=== PATIENT | male | born 1940 | race Caucasian/White ===

== ENCOUNTER 2017-09-21 08:50 | Outpatient (CLI) | payer MEDICARE, OTHER ==
--- NOTE | 2017-09-21 10:11 | CT ---
CT OF ABDOMEN AND PELVIS PERFORMED WITHOUT CONTRAST ENHANCEMENT: History: Lower back and lower abdomen pain. History of appendectomy. Patient has history of allergy t o contrast. Comparison: 09-28-15 FINDINGS: Lung bases show some minimal linear scar. The liver, spleen, pancreas and gallbladder regions appear unremarkable given the limitations of a no ncontrast exam. Right and left adrenal glands and right and left kidneys are normal in size and appearance. No obstru ction. No renal calculi. No significant periaortic or mesenteric adenopathy. Colonic diverticulosis is noted. Changes are more severe in the descending sigmoid colon region. CT OF PELVIS PERFORMED WITHOUT CONTRAST ENHANCEMENT: The prostate appears slightly enlarged. No adenopathy, mass, or free fluid. Incidental note is made of some diverticular changes of the terminal ileum. There are arthritic changes of the spine. Partially visualized intramedullary shazia in the right femur is seen. IMPRESSION: 1. No evidence of renal or ureteral calculi. 2. Colonic diverticulosis. Also some diverticular change of the terminal ileum. 3. Mildly enlarged prostate. POS: [facility]
== END 2017-09-21 08:51 | disposition home or self-care (01) ==
LOC: CT 08:50
PROVIDERS: ATTEND Urology
DX: R10.9 Unspecified abdominal pain (principal); K57.30 Diverticulosis of large intestine without perforation or abscess without bleeding; N40.0 Benign prostatic hyperplasia without lower urinary tract symptoms
CPT/HCPCS: 74176

== ENCOUNTER 2021-06-21 12:56 | Inpatient (IN) | payer MEDICARE, OTHER ==
[2021-06-21 14:00] LABS: #Eosinphils 0.1 thou/uL (0.0-0.7); #Lymphocytes 0.7 thou/uL (1.20-3.40); #Monocytes 0.5 thou/uL (0.11-0.59); #Neutrophils 8.1 thou/uL (1.40-6.50); %Basophils 0.4 % (0.0-1.0); %Eosinophils 0.6 % (0.0-10.0); %Lymphocytes 7.2 % (21.0-51.0); %Monocytes 5.3 % (0.0-10.0); %Neutrophils 86.5 % (42.0-75.0); Hemoglobin 6.8 g/dL (14.0-18.0); Mean Corpuscular HGB CONC 31.7 g/dL (32.0-36.0); Mean Corpuscular Hemoglobin 28.6 pg (27.0-31.0); Mean Corpuscular Volume 90.1 fL (78.0-98.0); Mean Platelet Volume 7.3 fL (7.4-10.4); Platelet Count 381 thou/uL (130-400); RBC Distribution Width 18.3 % (11.5-14.5); Red Blood Cell (RBC) Count 2.38 mill/uL (4.70-6.10); White Blood Cell (WBC) Count 9.4 thou/uL (4.8-10.8)
[2021-06-21 14:06] LABS: Bacteria/HPF None Seen HPF (None Seen); Bilirubin Negative (Negative); Blood, Urine Negative (Negative); Clarity Clear (Clear); Glucose, Urine (Dipstick) Normal (Negative); Ketone, Urine Negative (Negative); Leukocyte 500 Leu/uL (Negative); Nitrite Negative (Negative); Protein, Urine (Dipstick) Negative (Neg-Trace); RBC/HPF 0-3 HPF (0-3); Specific Gravity, Urine 1.023 (1.002-1.036); Squamous Epithelial None Seen HPF (0-3); Urobilinogen Normal mg/dL (Less than 2); WBC/HPF 21-50 HPF (0-3)
[2021-06-21 14:19] LABS: ALT (SGPT) 9 U/L (8-55); AST (SGOT) 13 U/L (5-34); Albumin 3.3 g/dL (3.4-4.8); Alkaline Phosphatase 72 U/L (40-110); Anion Gap 12 mmol/L (10-20); BUN (Urea Nitrogen) 50 mg/dL (8.4-25.7); Bilirubin, Total 0.5 mg/dL (0.2-1.2); CK (CPK) 27 U/L (30-200); Calc. Creatinine Clearance 0 mL/min (70-130); Calcium 8.8 mg/dL (7.8-10.44); Carbon Dioxide 23 mmol/L (23-31); Chloride 107 mmol/L (98-107); Globulin 1.9 g/dL (2.4-3.5); Glucose 144 mg/dL (83-110); Magnesium 1.9 mg/dL (1.6-2.6); Potassium 3.9 mmol/L (3.5-5.1); Protein, Total 5.2 g/dL (5.8-8.1); Sodium 138 mmol/L (136-145)
[2021-06-21] MEDS ORDERED: HYDROcodone/Acetaminophen 5/325 mg Tablet PO PRN (16:52)
[2021-06-21] MEDS ORDERED: Senokot S 8.6-50 MG TAB PO PRN (16:52)
[2021-06-21] MEDS ORDERED: Calcium Carbonate 500 MG ChewTAB PO PRN (16:52)
[2021-06-21] MEDS ORDERED: HYDROcodone/Acetaminophen 7.5/325 mg Tablet PO PRN (16:52)
[2021-06-21] MEDS ORDERED: Ondansetron PF 4 MG/2 ML Vial IVP PRN (17:02)
[2021-06-21] MEDS ORDERED: cefTRIAXone\\ROCEPHIN 1 GM in Sodium Chloride 0.9% 100 ML IVPB SCH (18:00)
[2021-06-21 18:54] LABS: Hemoglobin 7.4 g/dL (14.0-18.0); Platelet Count 306 thou/uL (130-400)
[2021-06-21 19:10] LABS: Iron 34 ug/dL (65-175); Iron Binding Capacity, Total 298 mcg/dL (261-462)
[2021-06-21 19:36] LABS: Ferritin 34.15 ng/mL (22-322)
[2021-06-21 20:42] VITALS: BMI 29.7
[2021-06-21] MEDS: Pantoprazole 40 MG VIAL IVP SCH (21:01)
[2021-06-21] MEDS ORDERED: hydrALAZINE 20 MG/ML VIAL SLOW IVP PRN (22:04)
[2021-06-21] MEDS ORDERED: RUXOLITINIB PHOSPHATE 10 MG PO SCH (23:00)
[2021-06-22 04:57] LABS: Hemoglobin 6.9 g/dL (14.0-18.0); Platelet Count 251 thou/uL (130-400)
[2021-06-22 05:27] LABS: ALT (SGPT) 7 U/L (8-55); AST (SGOT) 11 U/L (5-34); Albumin 2.7 g/dL (3.4-4.8); Alkaline Phosphatase 57 U/L (40-110); Anion Gap 8 mmol/L (10-20); BUN (Urea Nitrogen) 42 mg/dL (8.4-25.7); Calc. Creatinine Clearance 63 mL/min (70-130); Calcium 8.3 mg/dL (7.8-10.44); Carbon Dioxide 24 mmol/L (23-31); Chloride 113 mmol/L (98-107); Globulin 1.7 g/dL (2.4-3.5); Glucose 104 mg/dL (83-110); Potassium 4.3 mmol/L (3.5-5.1); Protein, Total 4.4 g/dL (5.8-8.1); Sodium 141 mmol/L (136-145)
[2021-06-22] MEDS: Gabapentin 300 MG CAP PO SCH ×3 (08:44→20:51)
[2021-06-22] MEDS: Pantoprazole 40 MG VIAL IVP SCH ×2 (08:44→20:51)
[2021-06-22] MEDS: RUXOLITINIB PHOSPHATE 10 MG PO SCH ×2 (08:45→20:53)
[2021-06-22 08:53] LABS: Iron 57 ug/dL (65-175); Iron Binding Capacity, Total 240 mcg/dL (261-462)
[2021-06-22 12:35] LABS: SARS-CoV-2 PCR by NAA Not Detected (NotDetected)
[2021-06-22] MEDS ORDERED: Morphine 2 MG/ML VIAL SLOW IVP SCH (22:45)
[2021-06-22] MEDS ORDERED: Amlodipine 10 MG TAB PO SCH (22:45)
[2021-06-23 04:55] LABS: #Eosinphils 0.1 thou/uL (0.0-0.7); #Lymphocytes 0.7 thou/uL (1.20-3.40); #Monocytes 0.5 thou/uL (0.11-0.59); #Neutrophils 3.7 thou/uL (1.40-6.50); %Basophils 0.5 % (0.0-1.0); %Eosinophils 1.9 % (0.0-10.0); %Lymphocytes 13.7 % (21.0-51.0); %Monocytes 9.3 % (0.0-10.0); %Neutrophils 74.7 % (42.0-75.0); Hemoglobin 7.4 g/dL (14.0-18.0); Mean Corpuscular HGB CONC 32.7 g/dL (32.0-36.0); Mean Corpuscular Hemoglobin 29.4 pg (27.0-31.0); Platelet Count 237 thou/uL (130-400); RBC Distribution Width 16.8 % (11.5-14.5); White Blood Cell (WBC) Count 4.9 thou/uL (4.8-10.8)
[2021-06-23 05:19] LABS: Anion Gap 8 mmol/L (10-20); BUN (Urea Nitrogen) 29 mg/dL (8.4-25.7); Calc. Creatinine Clearance 73 mL/min (70-130); Calcium 8.5 mg/dL (7.8-10.44); Carbon Dioxide 23 mmol/L (23-31); Chloride 111 mmol/L (98-107); Glucose 99 mg/dL (83-110); Potassium 3.9 mmol/L (3.5-5.1); Sodium 138 mmol/L (136-145)
[2021-06-23] MEDS ORDERED: Polyethylene Glycol 3350 17 GM Packet PO PRN (06:38)
[2021-06-23] MEDS: Hydrochlorothiazide 25 MG TAB PO SCH (08:54)
[2021-06-23] MEDS: Pantoprazole 40 MG VIAL IVP SCH ×2 (08:54→20:10)
[2021-06-23] MEDS: Losartan 25 MG TAB PO SCH (08:55)
[2021-06-23] MEDS: RUXOLITINIB PHOSPHATE 10 MG PO SCH ×2 (08:55→20:11)
[2021-06-23] MEDS ORDERED: Amlodipine 5 MG TAB PO SCH (09:00)
[2021-06-23] MEDS ORDERED: Cyanocobalamin 1000 MCG/ML VIAL IM SCH (09:00)
[2021-06-23] MEDS: Acetaminophen 500 MG TAB PO PRN ×2 (09:05→18:45)
[2021-06-23] MEDS ORDERED: GoLYTELY 4,000 ml Bottle PO SCH (16:00)
[2021-06-23] MEDS ORDERED: Labetalol HCl 100 MG/20 ML VIAL SLOW IVP PRN (17:53)
[2021-06-23] MEDS: Doxazosin Mesylate 4 MG TAB PO SCH (20:11)
[2021-06-23] MEDS ORDERED: Pregabalin 50 MG CAP PO SCH (23:00)
[2021-06-24 04:57] LABS: #Eosinphils 0.1 thou/uL (0.0-0.7); #Lymphocytes 0.5 thou/uL (1.20-3.40); #Monocytes 0.3 thou/uL (0.11-0.59); #Neutrophils 3.4 thou/uL (1.40-6.50); %Basophils 0.7 % (0.0-1.0); %Eosinophils 2.3 % (0.0-10.0); %Monocytes 6.8 % (0.0-10.0); %Neutrophils 78.1 % (42.0-75.0); Hemoglobin 6.9 g/dL (14.0-18.0); Mean Corpuscular HGB CONC 32.4 g/dL (32.0-36.0); Mean Corpuscular Hemoglobin 29.6 pg (27.0-31.0); Mean Corpuscular Volume 91.2 fL (78.0-98.0); Mean Platelet Volume 6.9 fL (7.4-10.4); Platelet Count 230 thou/uL (130-400); RBC Distribution Width 16.6 % (11.5-14.5); Red Blood Cell (RBC) Count 2.34 mill/uL (4.70-6.10); White Blood Cell (WBC) Count 4.3 thou/uL (4.8-10.8)
[2021-06-24 05:18] LABS: Anion Gap 8 mmol/L (10-20); BUN (Urea Nitrogen) 19 mg/dL (8.4-25.7); Calc. Creatinine Clearance 72 mL/min (70-130); Calcium 8.5 mg/dL (7.8-10.44); Carbon Dioxide 28 mmol/L (23-31); Chloride 107 mmol/L (98-107); Glucose 104 mg/dL (83-110); Potassium 3.5 mmol/L (3.5-5.1); Sodium 139 mmol/L (136-145)
[2021-06-24] MEDS ORDERED: Ketamine 50 MG/ML (10ML VIAL) ONE (07:15)
[2021-06-24] MEDS ORDERED: PHENYLEPHRINE-NS 100 MCG/ML 10 ML SYRINGE ONE ×2 (08:01→09:04)
[2021-06-24] MEDS ORDERED: PROPOFOL 200 MG/20 ML VIAL ONE (08:01)
[2021-06-24] MEDS ORDERED: ePHEDrine 50 MG/ML VIAL ONE (08:01)
[2021-06-24] MEDS ORDERED: Pregabalin 50 MG CAP PO SCH (09:00)
[2021-06-24] MEDS ORDERED: ePHEDrine Sulfate 50 MG/10 ML VIAL ONE (09:04)
[2021-06-24] MEDS ORDERED: Phenylephrine 10 MG/ML VIAL ONE (09:04)
[2021-06-24] MEDS: Losartan 25 MG TAB PO SCH (10:16)
[2021-06-24] MEDS: Hydrochlorothiazide 25 MG TAB PO SCH (10:16)
[2021-06-24] MEDS: Pantoprazole 40 MG VIAL IVP SCH ×2 (10:16→20:32)
[2021-06-24] MEDS: RUXOLITINIB PHOSPHATE 10 MG PO SCH ×2 (10:17→20:34)
[2021-06-24 17:33] LABS: Hemoglobin 8.1 g/dL (14.0-18.0)
[2021-06-24 17:34] LABS: Platelet Count 244 thou/uL (130-400)
[2021-06-24] MEDS: Acetaminophen 500 MG TAB PO PRN (20:30)
[2021-06-24] MEDS: Doxazosin Mesylate 4 MG TAB PO SCH (20:31)
[2021-06-24] MEDS ORDERED: Amitriptyline HCl 10 MG TAB PO SCH (21:00)
[2021-06-25 04:09] LABS: #Eosinphils 0.1 thou/uL (0.0-0.7); #Lymphocytes 0.7 thou/uL (1.20-3.40); #Monocytes 0.3 thou/uL (0.11-0.59); #Neutrophils 3.9 thou/uL (1.40-6.50); %Basophils 0.2 % (0.0-1.0); %Eosinophils 1.3 % (0.0-10.0); %Monocytes 6.5 % (0.0-10.0); Hemoglobin 8.1 g/dL (14.0-18.0); Mean Corpuscular HGB CONC 31.9 g/dL (32.0-36.0); Mean Corpuscular Hemoglobin 29.5 pg (27.0-31.0); Mean Corpuscular Volume 92.4 fL (78.0-98.0); Mean Platelet Volume 7.1 fL (7.4-10.4); Platelet Count 249 thou/uL (130-400); RBC Distribution Width 16.3 % (11.5-14.5); Red Blood Cell (RBC) Count 2.74 mill/uL (4.70-6.10)
[2021-06-25 04:29] LABS: Anion Gap 13 mmol/L (10-20); BUN (Urea Nitrogen) 19 mg/dL (8.4-25.7); Calc. Creatinine Clearance 61 mL/min (70-130); Calcium 8.6 mg/dL (7.8-10.44); Carbon Dioxide 23 mmol/L (23-31); Chloride 106 mmol/L (98-107); Glucose 111 mg/dL (83-110); Potassium 3.6 mmol/L (3.5-5.1); Sodium 138 mmol/L (136-145)
[2021-06-25] MEDS ORDERED: Cyanocobalamin (Vitamin B-12) 1,000 MCG TAB PO SCH (09:00)
[2021-06-25] MEDS: RUXOLITINIB PHOSPHATE 10 MG PO SCH (09:29)
[2021-06-25] MEDS: Losartan 25 MG TAB PO SCH (09:30)
[2021-06-25] MEDS: Pantoprazole 40 MG VIAL IVP SCH (09:30)
[2021-06-25] MEDS: Hydrochlorothiazide 25 MG TAB PO SCH (09:30)
[2021-06-25 12:01] VITALS: BP 168/68; TEMP 97.6
== END 2021-06-25 13:39 | disposition home or self-care (01) | DRG 811 ==
LOC: ERS 12:56 → ERHOLD 15:33 → 2NO 18:05
PROVIDERS: ADMIT Family Medicine; ATTEND Internal Medicine
PROC: 30233N1 Transfusion of Nonautologous Red Blood Cells into Peripheral Vein, Percutaneous Approach (ICD-10-PCS; principal; 2021-06-21)
PROC: 0W3P8ZZ Control Bleeding in Gastrointestinal Tract, Via Natural or Artificial Opening Endoscopic (ICD-10-PCS; 2021-06-24)
PROC: 0DJD8ZZ Inspection of Lower Intestinal Tract, Via Natural or Artificial Opening Endoscopic (ICD-10-PCS; 2021-06-24)
DX: D50.9 Iron deficiency anemia, unspecified (principal); K31.82 Dieulafoy lesion (hemorrhagic) of stomach and duodenum; N17.9 Acute kidney failure, unspecified; D46.9 Myelodysplastic syndrome, unspecified; Z20.822 Contact with and (suspected) exposure to COVID-19; I10 Essential (primary) hypertension; C44.90 Unspecified malignant neoplasm of skin, unspecified; I48.0 Paroxysmal atrial fibrillation; I25.10 Atherosclerotic heart disease of native coronary artery without angina pectoris; R82.81 Pyuria; K57.30 Diverticulosis of large intestine without perforation or abscess without bleeding; K64.8 Other hemorrhoids; Z90.49 Acquired absence of other specified parts of digestive tract; Z91.041 Radiographic dye allergy status; Z79.01 Long term (current) use of anticoagulants; Z95.1 Presence of aortocoronary bypass graft; Z79.899 Other long term (current) drug therapy
CPT/HCPCS: 36415; 36430; 71045; 80048; 80053; 81003; 81015; 82274; 82550; 82607; 82728; 82746; 83540; 83550; 83605; 83615; 83735; 84443; 84484; 85014; 85018; 85025; 85049; 86850; 86900; 86901; 87086; 99285; C1776; C9113; J0360; J0696; J2270; J2370; J2704; J3420; J3490; P9016; U0003; U0005

== ENCOUNTER 2021-08-06 08:57 | Day surgery (SDC) | payer MEDICARE, OTHER ==
[2021-08-06] MEDS ORDERED: diphenhydrAMINE 25 MG CAP ONE (10:15)
[2021-08-06] MEDS ORDERED: Acetaminophen 325 MG TAB ONE ×2 (10:15)
[2021-08-06 15:44] VITALS: BP 151/67; TEMP 97.9
[2021-08-06 16:58] LABS: Hemoglobin 8.9 g/dL (14.0-18.0)
== END 2021-08-06 16:40 | disposition home or self-care (01) ==
LOC: ONC/OP 08:57
PROVIDERS: ATTEND Family Medicine
PROC: 30233N1 Transfusion of Nonautologous Red Blood Cells into Peripheral Vein, Percutaneous Approach (ICD-10-PCS; principal; 2021-08-06)
DX: D46.9 Myelodysplastic syndrome, unspecified (principal); Z91.041 Radiographic dye allergy status
CPT/HCPCS: 36430; 85014; 85018; 86850; 86900; 86901; P9016

== ENCOUNTER 2021-10-02 13:03 | Emergency (ER) | payer MEDICARE, OTHER ==
[2021-10-02 13:50] LABS: #Lymphocytes 0.5 thou/uL (1.20-3.40); #Monocytes 0.3 thou/uL (0.11-0.59); #Neutrophils 3.7 thou/uL (1.40-6.50); %Basophils 0.9 % (0.0-1.0); %Eosinophils 0.8 % (0.0-10.0); %Lymphocytes 10.3 % (21.0-51.0); %Monocytes 6.1 % (0.0-10.0); %Neutrophils 81.9 % (42.0-75.0); Hemoglobin 5.9 g/dL (14.0-18.0); Mean Corpuscular HGB CONC 29.1 g/dL (32.0-36.0); Mean Corpuscular Hemoglobin 24.6 pg (27.0-31.0); Mean Corpuscular Volume 84.6 fL (78.0-98.0); Mean Platelet Volume 7.3 fL (7.4-10.4); Platelet Count 252 thou/uL (130-400); RBC Distribution Width 16.9 % (11.5-14.5); Red Blood Cell (RBC) Count 2.38 mill/uL (4.70-6.10); White Blood Cell (WBC) Count 4.5 thou/uL (4.8-10.8)
[2021-10-02 13:58] LABS: INR-International Normal Ratio 1.1; Prothrombin Time 14.5 sec (12.0-14.7)
[2021-10-02 13:59] LABS: PTT 30.5 sec (22.9-36.1)
[2021-10-02 14:03] LABS: ALT (SGPT) 9 U/L (8-55); AST (SGOT) 17 U/L (5-34); Albumin 3.4 g/dL (3.4-4.8); Alkaline Phosphatase 57 U/L (40-110); Anion Gap 16 mmol/L (10-20); BUN (Urea Nitrogen) 34 mg/dL (8.4-25.7); Bilirubin, Total 0.4 mg/dL (0.2-1.2); Calc. Creatinine Clearance 0 mL/min (70-130); Calcium 8.7 mg/dL (7.8-10.44); Carbon Dioxide 19 mmol/L (23-31); Chloride 110 mmol/L (98-107); Estimated GFR 44; Globulin 1.9 g/dL (2.4-3.5); Glucose 115 mg/dL (83-110); Lipase 23 U/L (8-78); Potassium 4.6 mmol/L (3.5-5.1); Protein, Total 5.3 g/dL (5.8-8.1); Sodium 140 mmol/L (136-145)
[2021-10-02 16:59] LABS: Bacteria/HPF None Seen HPF (None Seen); Bilirubin Negative (Negative); Blood, Urine Negative (Negative); Clarity Clear (Clear); Glucose, Urine (Dipstick) Normal (Negative); Ketone, Urine Negative (Negative); Leukocyte 75 Leu/uL (Negative); Nitrite Negative (Negative); Protein, Urine (Dipstick) Negative (Neg-Trace); RBC/HPF 0-3 HPF (0-3); Specific Gravity, Urine 1.012 (1.002-1.036); Squamous Epithelial None Seen HPF (0-3); Urobilinogen Normal mg/dL (Less than 2)
== END 2021-10-02 19:20 | disposition home or self-care (01) ==
LOC: ERS 13:03
DX: K57.33 Diverticulitis of large intestine without perforation or abscess with bleeding (principal); I10 Essential (primary) hypertension
CPT/HCPCS: 36430; 74176; 80053; 83690; 85025; 85610; 85730; 86850; 86900; 86901; 86920; 96360; 99285; P9016; 36415; 81003; 81015

== ENCOUNTER 2021-10-20 08:53 | Day surgery (SDC) | payer MEDICARE, OTHER ==
[2021-10-20] MEDS ORDERED: Acetaminophen 325 MG TAB ONE ×2 (09:58)
[2021-10-20 16:40] VITALS: BP 183/80; TEMP 97.7
== END 2021-10-20 16:40 | disposition home or self-care (01) ==
LOC: ONC/OP 08:53
PROVIDERS: ATTEND Physician Assistant Medical
PROC: 30233N1 Transfusion of Nonautologous Red Blood Cells into Peripheral Vein, Percutaneous Approach (ICD-10-PCS; principal; 2021-10-20)
DX: D64.9 Anemia, unspecified (principal); Z91.041 Radiographic dye allergy status
CPT/HCPCS: 36430; 86850; 86900; 86901; P9016

== ENCOUNTER 2021-10-26 07:43 | Day surgery (SDC) | payer MEDICARE, OTHER ==
[2021-10-25 10:56] VITALS: BMI 29.4
[2021-10-26] MEDS ORDERED: Lidocaine 1% MPF 2 ML VIAL ONE (09:46)
[2021-10-26] MEDS ORDERED: PROPOFOL 200 MG/20 ML VIAL ONE (09:46)
== END 2021-10-26 11:00 | disposition home or self-care (01) ==
LOC: SDC 07:43
PROVIDERS: ATTEND Internal Medicine
PROC: 0DB68ZX Excision of Stomach, Via Natural or Artificial Opening Endoscopic, Diagnostic (ICD-10-PCS; principal; 2021-10-26)
DX: D62 Acute posthemorrhagic anemia (principal); K31.89 Other diseases of stomach and duodenum; K26.9 Duodenal ulcer, unspecified as acute or chronic, without hemorrhage or perforation; D75.81 Myelofibrosis; I10 Essential (primary) hypertension; I25.10 Atherosclerotic heart disease of native coronary artery without angina pectoris; N40.0 Benign prostatic hyperplasia without lower urinary tract symptoms; F17.290 Nicotine dependence, other tobacco product, uncomplicated; K86.89 Other specified diseases of pancreas; Z79.01 Long term (current) use of anticoagulants; Z79.899 Other long term (current) drug therapy; Z91.041 Radiographic dye allergy status; Z95.1 Presence of aortocoronary bypass graft
CPT/HCPCS: 88305; J2704

== ENCOUNTER 2021-12-21 06:36 | Day surgery (SDC) | payer MEDICARE, OTHER ==
[2021-12-20 13:56] VITALS: BMI 29.4
[2021-12-21] MEDS ORDERED: Ketorolac Tromethamine 30 MG/ML VIAL ONE (07:16)
[2021-12-21] MEDS ORDERED: Acetaminophen 500 MG TAB ONE (07:16)
[2021-12-21] MEDS ORDERED: Lidocaine 1% (PF) 30 ML VIAL ONE (08:23)
[2021-12-21] MEDS ORDERED: Bupivacaine/Epinephrine 0.25% 30 ML VIAL ONE (08:23)
[2021-12-21] MEDS ORDERED: fentaNYL PF 100 MCG/2 ML SYRINGE ONE (08:26)
[2021-12-21] MEDS ORDERED: Propofol 500 MG/50 ML VIAL ONE (08:26)
[2021-12-21] MEDS ORDERED: CEFAZOLIN 2 GM VIAL ONE (08:33)
[2021-12-21] MEDS ORDERED: Sodium Chloride 0.9% 100 ML ONE (08:33)
== END 2021-12-21 10:20 | disposition home or self-care (01) ==
LOC: SDC 06:36
PROVIDERS: ATTEND Specialist
PROC: 0JH60WZ Insertion of Totally Implantable Vascular Access Device into Chest Subcutaneous Tissue and Fascia, Open Approach (ICD-10-PCS; principal; 2021-12-21)
PROC: 02HV33Z Insertion of Infusion Device into Superior Vena Cava, Percutaneous Approach (ICD-10-PCS; 2021-12-21)
DX: C25.9 Malignant neoplasm of pancreas, unspecified (principal); C78.7 Secondary malignant neoplasm of liver and intrahepatic bile duct; I10 Essential (primary) hypertension; F17.290 Nicotine dependence, other tobacco product, uncomplicated; I25.10 Atherosclerotic heart disease of native coronary artery without angina pectoris; N40.0 Benign prostatic hyperplasia without lower urinary tract symptoms; Z79.622 Long term (current) use of Janus kinase inhibitor; Z79.899 Other long term (current) drug therapy; Z91.041 Radiographic dye allergy status; Z95.1 Presence of aortocoronary bypass graft
CPT/HCPCS: 36561; 71045; C1788; J1642; J1885; J2001; J2704; J3490

== ENCOUNTER 2022-01-04 12:02 | Day surgery (SDC) | payer MEDICARE, OTHER ==
[2022-01-04] MEDS ORDERED: diphenhydrAMINE 25 MG CAP ONE (13:04)
[2022-01-04] MEDS ORDERED: Acetaminophen 500 MG TAB ONE (13:04)
[2022-01-04 18:29] VITALS: TEMP 97.1
[2022-01-04 18:32] VITALS: BP 112/56
== END 2022-01-04 18:33 | disposition home or self-care (01) ==
LOC: ONC/OP 12:02
PROVIDERS: ATTEND Internal Medicine Hematology & Oncology
PROC: 30233N1 Transfusion of Nonautologous Red Blood Cells into Peripheral Vein, Percutaneous Approach (ICD-10-PCS; principal; 2022-01-04)
DX: D64.9 Anemia, unspecified (principal); D69.6 Thrombocytopenia, unspecified; Z91.041 Radiographic dye allergy status
CPT/HCPCS: 36430; 86850; 86900; 86901; J1642; P9016

== ENCOUNTER 2022-01-11 08:56 | Day surgery (SDC) | payer MEDICARE, OTHER ==
[2022-01-11] MEDS ORDERED: Acetaminophen 500 MG TAB ONE (09:23)
[2022-01-11] MEDS ORDERED: diphenhydrAMINE 25 MG CAP ONE (09:23)
[2022-01-11] MEDS ORDERED: diphenhydrAMINE 25 MG CAP PO SCH (09:30)
[2022-01-11] MEDS ORDERED: Acetaminophen 500 MG TAB PO SCH (09:30)
[2022-01-11 14:08] VITALS: BP 131/62; TEMP 97.4
== END 2022-01-11 14:10 | disposition home or self-care (01) ==
LOC: ONC/OP 08:56
PROVIDERS: ATTEND Internal Medicine Hematology & Oncology
PROC: 30233N1 Transfusion of Nonautologous Red Blood Cells into Peripheral Vein, Percutaneous Approach (ICD-10-PCS; principal; 2022-01-11)
DX: D64.9 Anemia, unspecified (principal); D69.6 Thrombocytopenia, unspecified; Z91.041 Radiographic dye allergy status
CPT/HCPCS: 36430; 86850; 86900; 86901; J1642; P9016

== ENCOUNTER 2022-01-14 10:05 | Day surgery (SDC) | payer MEDICARE, OTHER ==
[2022-01-14] MEDS ORDERED: diphenhydrAMINE 25 MG CAP ONE (10:39)
[2022-01-14] MEDS ORDERED: Acetaminophen 500 MG TAB ONE (10:39)
[2022-01-14] MEDS ORDERED: diphenhydrAMINE 25 MG CAP PO SCH (11:45)
[2022-01-14] MEDS ORDERED: Acetaminophen 500 MG TAB PO SCH (11:45)
[2022-01-14 15:40] VITALS: BP 126/63; TEMP 97.9
[2022-01-14 17:07] LABS: Anisocytosis SLIGHT = 6-15 cells (100X) (0-5/hpf); Band 12 % (5-11); Eosinophils 1 % (0-10); Hemoglobin 6.8 g/dL (14.0-18.0); Lymphocytes 1 % (21-51); MDiff Complete? YES; Mean Corpuscular HGB CONC 32.5 g/dL (32.0-36.0); Mean Corpuscular Hemoglobin 30.2 pg (27.0-31.0); Mean Corpuscular Volume 92.8 fl (78.0-98.0); Mean Platelet Volume 7.7 fL (7.4-10.4); Monocytes 3 % (0-10); Neutrophil 82 % (42-75); Platelet Count 326 10x3/uL (130-400); Platelet Morphology Comment Appears Adequate; Polychromasia SLIGHT = 2-3 cells (100X) (0-2/hpf); RBC Distribution Width 20.9 % (11.5-14.5); Red Blood Cell (RBC) Count 2.24 mill/uL (4.70-6.10); White Blood Cell (WBC) Count 25.7 10x3/uL (4.8-10.8)
== END 2022-01-14 16:35 | disposition home or self-care (01) ==
LOC: ONC/OP 10:05
PROVIDERS: ATTEND Internal Medicine Hematology & Oncology
PROC: 30233N1 Transfusion of Nonautologous Red Blood Cells into Peripheral Vein, Percutaneous Approach (ICD-10-PCS; principal; 2022-01-14)
DX: D64.9 Anemia, unspecified (principal); D69.6 Thrombocytopenia, unspecified; Z91.041 Radiographic dye allergy status
CPT/HCPCS: 36430; 85025; 86850; 86900; 86901; J1642; P9016

== ENCOUNTER → 2022-01-17 | Day surgery (SDC) | payer MEDICARE, OTHER ==
[~2022-01-17] MED LIST: Acetaminophen 500 MG TAB ONE; Acetaminophen 500 MG TAB PO SCH; diphenhydrAMINE 25 MG CAP ONE; diphenhydrAMINE 25 MG CAP PO PRN
[2022-01-17 16:18] VITALS: BP 135/63; TEMP 97.6
[2022-01-17 18:36] LABS: Anisocytosis SLIGHT = 6-15 cells (100X) (0-5/hpf); Band 28 % (5-11); Hemoglobin 6.7 g/dL (14.0-18.0); Lymphocytes 2 % (21-51); MDiff Complete? YES; Mean Corpuscular HGB CONC 32.5 g/dL (32.0-36.0); Mean Corpuscular Volume 89.4 fl (78.0-98.0); Mean Platelet Volume 7.7 fL (7.4-10.4); Monocytes 4 % (0-10); Myelocyte 1 % (0-0); Neutrophil 63 % (42-75); Nucleated RBC 8 % (0); Platelet Count 180 10x3/uL (130-400); Platelet Morphology Comment Appears Adequate; Polychromasia SLIGHT = 2-3 cells (100X) (0-2/hpf); RBC Distribution Width 20.7 % (11.5-14.5); Reactive Lymphocytes 2 % (0-10); Red Blood Cell (RBC) Count 2.32 mill/uL (4.70-6.10); White Blood Cell (WBC) Count 43.6 10x3/uL (4.8-10.8)
== END | disposition home or self-care (01) ==
LOC: ONC/OP 09:30
PROVIDERS: ATTEND Internal Medicine Hematology & Oncology
PROC: 30233N1 Transfusion of Nonautologous Red Blood Cells into Peripheral Vein, Percutaneous Approach (ICD-10-PCS; principal; 2022-01-17)
DX: D64.9 Anemia, unspecified (principal); D69.6 Thrombocytopenia, unspecified; Z91.041 Radiographic dye allergy status
CPT/HCPCS: 36430; 85025; 86850; 86900; 86901; J1642; P9016

== ENCOUNTER 2022-01-18 05:52 | Day surgery (SDC) | payer MEDICARE, OTHER ==
[2022-01-17 14:44] VITALS: BMI 30.2
[2022-01-18] MEDS ORDERED: Lidocaine 1% MPF 2 ML VIAL ONE (06:43)
[2022-01-18] MEDS ORDERED: PROPOFOL 200 MG/20 ML VIAL ONE (07:36)
[2022-01-18] MEDS ORDERED: Octreotide Acetate 1,250 MCG in Sodium Chloride 0.9% 250 ML 250 ML IVPB SCH (08:30)
[2022-01-18 08:51] LABS: Hemoglobin 6.1 g/dL (14.0-18.0); Platelet Count 127 10x3/uL (130-400)
[2022-01-18] MEDS ORDERED: Ondansetron PF 4 MG/2 ML Vial ONE (09:50)
[2022-01-18 10:42] LABS: SARS-CoV-2 NAA Rapid Test Not Detected (NotDetected)
== END 2022-01-18 10:02 | disposition critical access hospital (66) ==
LOC: SDC 05:52
PROVIDERS: ATTEND Internal Medicine
PROC: 0DJ08ZZ Inspection of Upper Intestinal Tract, Via Natural or Artificial Opening Endoscopic (ICD-10-PCS; principal; 2022-01-18)
DX: I86.4 Gastric varices (principal); K29.70 Gastritis, unspecified, without bleeding; D50.9 Iron deficiency anemia, unspecified; D75.81 Myelofibrosis; D63.8 Anemia in other chronic diseases classified elsewhere; C25.9 Malignant neoplasm of pancreas, unspecified; C78.7 Secondary malignant neoplasm of liver and intrahepatic bile duct; I87.8 Other specified disorders of veins; I77.89 Other specified disorders of arteries and arterioles; K76.6 Portal hypertension; I10 Essential (primary) hypertension; I25.10 Atherosclerotic heart disease of native coronary artery without angina pectoris; N40.0 Benign prostatic hyperplasia without lower urinary tract symptoms; F17.290 Nicotine dependence, other tobacco product, uncomplicated; Z87.19 Personal history of other diseases of the digestive system; Z79.622 Long term (current) use of Janus kinase inhibitor; Z79.899 Other long term (current) drug therapy; Z91.041 Radiographic dye allergy status; Z95.1 Presence of aortocoronary bypass graft; Z20.822 Contact with and (suspected) exposure to COVID-19
CPT/HCPCS: 43235; 85014; 85018; 85049; 86850; 86900; 86901; 86920; P9016; U0002; 36430; J2354; J2405; J2704; J7050

== ENCOUNTER 2022-01-24 14:33 | Emergency (ER) | payer MEDICARE, OTHER ==
[2022-01-24 15:52] LABS: Hemoglobin 4.8 g/dL (14.0-18.0); Mean Corpuscular HGB CONC 30.4 g/dL (32.0-36.0); Mean Corpuscular Hemoglobin 29.4 pg (27.0-31.0); Mean Corpuscular Volume 96.9 fl (78.0-98.0); Mean Platelet Volume 7.7 fL (7.4-10.4); Platelet Count 216 10x3/uL (130-400); RBC Distribution Width 23.8 % (11.5-14.5); Red Blood Cell (RBC) Count 1.63 mill/uL (4.70-6.10)
[2022-01-24 15:59] LABS: INR-International Normal Ratio 1.1
[2022-01-24 16:08] LABS: ALT (SGPT) 31 U/L (8-55); AST (SGOT) 28 U/L (5-34); Albumin 2.4 g/dL (3.4-4.8); Alkaline Phosphatase 111 U/L (40-110); Anion Gap 8 mmol/L (10-20); BUN (Urea Nitrogen) 41 mg/dL (8.4-25.7); Bilirubin, Total 0.3 mg/dL (0.2-1.2); Calc. Creatinine Clearance 0 mL/min (70-130); Calcium 7.8 mg/dL (7.8-10.44); Carbon Dioxide 25 mmol/L (23-31); Chloride 112 mmol/L (98-107); Estimated GFR 58; Globulin 1.4 g/dL (2.4-3.5); Glucose 115 mg/dL (83-110); Potassium 4.4 mmol/L (3.5-5.1); Protein, Total 3.8 g/dL (5.8-8.1); Sodium 141 mmol/L (136-145)
[2022-01-24 16:14] LABS: Anisocytosis MODERATE=16-30 cells (100X) (0-5/hpf); Band 33 % (5-11); Eosinophils 1 % (0-10); Lymphocytes 4 % (21-51); MDiff Complete? YES; Metamyelocyte 2 % (0-0); Myelocyte 1 % (0-0); Neutrophil 58 % (42-75); Nucleated RBC 4 % (0); Ovalocytes SLIGHT = 2-5 cells (100X) (0-1/hpf); Platelet Morphology Comment Appears Adequate; Polychromasia MODERATE = 3-4 cells (100X) (0-2/hpf); White Blood Cell (WBC) Count 11.3 10x3/uL (4.8-10.8)
[2022-01-24] MEDS ORDERED: Pantoprazole 40 MG VIAL ONE (16:42)
[2022-01-24] MEDS ORDERED: Octreotide Acetate 1,250 MCG in Sodium Chloride 0.9% 250 ML 250 ML IVPB SCH (19:15)
[2022-01-24 20:43] LABS: Hemoglobin 7.5 g/dL (14.0-18.0); Mean Corpuscular HGB CONC 31.8 g/dL (32.0-36.0); Mean Corpuscular Hemoglobin 30.2 pg (27.0-31.0); Mean Corpuscular Volume 94.8 fl (78.0-98.0); Platelet Count 205 10x3/uL (130-400); RBC Distribution Width 19.4 % (11.5-14.5)
[2022-01-24 21:05] LABS: Band 29 % (5-11); Hypochromia SLIGHT = 6-15 cells (100X) (0-5/hpf); Lymphocytes 2 % (21-51); MDiff Complete? YES; Neutrophil 69 % (42-75); Nucleated RBC 2 % (0); Platelet Morphology Comment Appears Adequate; White Blood Cell (WBC) Count 11.1 10x3/uL (4.8-10.8)
== END 2022-01-24 21:49 | disposition short-term general hospital (02) ==
LOC: ERS 14:33
DX: D50.0 Iron deficiency anemia secondary to blood loss (chronic) (principal); C94.6 Myelodysplastic disease, not elsewhere classified; C25.4 Malignant neoplasm of endocrine pancreas; I10 Essential (primary) hypertension; Z79.899 Other long term (current) drug therapy
CPT/HCPCS: 36430; 71045; 80053; 84484; 85025 ×2; 85610; 85730; 86850; 86900; 86901; 86920; 93005; 96365; 96374; 99291; P9016; 82248; 83615; 84100; 84550; C9113; J2354; J7050

== ENCOUNTER 2022-03-23 08:00 | Outpatient (CLI) | payer MEDICARE, OTHER ==
[2022-03-23] MEDS ORDERED: Iopamidol 370 76% 100 ML VIAL ONE (15:00)
== END 2022-03-23 08:01 | disposition home or self-care (01) ==
LOC: CT 08:00
PROVIDERS: ATTEND Internal Medicine Hematology & Oncology
DX: C25.1 Malignant neoplasm of body of pancreas (principal); C78.7 Secondary malignant neoplasm of liver and intrahepatic bile duct; D50.9 Iron deficiency anemia, unspecified; K76.89 Other specified diseases of liver; R16.1 Splenomegaly, not elsewhere classified; I86.4 Gastric varices; K57.30 Diverticulosis of large intestine without perforation or abscess without bleeding; D73.89 Other diseases of spleen; K86.89 Other specified diseases of pancreas
CPT/HCPCS: 71260; 74177; Q9967

== ENCOUNTER → 2022-04-21 | Day surgery (SDC) | payer MEDICARE, OTHER ==
[~2022-04-21] MED LIST changes: -diphenhydrAMINE 25 MG CAP ONE; -diphenhydrAMINE 25 MG CAP PO PRN; +diphenhydrAMINE 25 MG CAP PO SCH
[2022-04-21 11:22] VITALS: TEMP 97.7
[2022-04-21 13:41] VITALS: BP 126/57
[2022-04-21 15:17] LABS: Anisocytosis SLIGHT = 6-15 cells (100X) (0-5/hpf); Band 20 % (5-11); Hemoglobin 6.6 g/dL (14.0-18.0); Lymphocytes 4 % (21-51); MDiff Complete? YES; Mean Corpuscular HGB CONC 31.7 g/dL (32.0-36.0); Mean Corpuscular Volume 94.6 fl (78.0-98.0); Mean Platelet Volume 8.2 fL (7.4-10.4); Monocytes 4 % (0-10); Neutrophil 71 % (42-75); Nucleated RBC 2 % (0); Platelet Count 109 10x3/uL (130-400); Platelet Morphology Comment Appears Decreased; Polychromasia SLIGHT = 2-3 cells (100X) (0-2/hpf); RBC Distribution Width 22.3 % (11.5-14.5); Reactive Lymphocytes 1 % (0-10); Red Blood Cell (RBC) Count 2.21 mill/uL (4.70-6.10); White Blood Cell (WBC) Count 38.7 10x3/uL (4.8-10.8)
== END | disposition home or self-care (01) ==
LOC: ONC/OP 09:54
PROVIDERS: ATTEND Internal Medicine Hematology & Oncology
PROC: 30233N1 Transfusion of Nonautologous Red Blood Cells into Peripheral Vein, Percutaneous Approach (ICD-10-PCS; principal; 2022-04-21)
DX: D64.9 Anemia, unspecified (principal); D69.6 Thrombocytopenia, unspecified
CPT/HCPCS: 36430; 85025; 86850; 86900; 86901; J1642; P9016

== ENCOUNTER 2022-04-22 08:50 | Observation (INO) | payer MEDICARE, OTHER ==
[2022-04-22] MEDS ORDERED: Acetaminophen 500 MG TAB ONE (09:39)
[2022-04-22] MEDS ORDERED: Morphine 4 MG/ML VIAL ONE (09:39)
[2022-04-22] MEDS ORDERED: Ondansetron PF 4 MG/2 ML Vial ONE (09:39)
[2022-04-22] MEDS ORDERED: diphenhydrAMINE 50 MG/ML VIAL ONE (09:39)
[2022-04-22] MEDS ORDERED: Famotidine/PF 20 mg/2ml Vial ONE (09:39)
[2022-04-22] MEDS ORDERED: methylPREDNISolone Sod Succ 40 MG VIAL ONE (09:39)
[2022-04-22 09:44] LABS: Hemoglobin 5.3 g/dL (14.0-18.0); Mean Corpuscular HGB CONC 30.6 g/dL (32.0-36.0); Mean Corpuscular Hemoglobin 28.8 pg (27.0-31.0); Mean Corpuscular Volume 94.1 fl (78.0-98.0); Platelet Count 128 10x3/uL (130-400); RBC Distribution Width 22.3 % (11.5-14.5); Red Blood Cell (RBC) Count 1.83 mill/uL (4.70-6.10); White Blood Cell (WBC) Count 52.6 10x3/uL (4.8-10.8)
[2022-04-22 09:57] LABS: INR-International Normal Ratio 1.2; Prothrombin Time 15.5 sec (12.0-14.7)
[2022-04-22 09:58] LABS: PTT 74.3 sec (22.9-36.1)
[2022-04-22 10:01] LABS: ALT (SGPT) 29 U/L (8-55); AST (SGOT) 25 U/L (5-34); Albumin 2.7 g/dL (3.4-4.8); Alkaline Phosphatase 158 U/L (40-110); Anion Gap 11 mmol/L (10-20); BUN (Urea Nitrogen) 74 mg/dL (8.4-25.7); Bilirubin, Total 0.3 mg/dL (0.2-1.2); Calc. Creatinine Clearance 0 mL/min (70-130); Calcium 8.3 mg/dL (7.8-10.44); Carbon Dioxide 21 mmol/L (23-31); Chloride 112 mmol/L (98-107); Estimated GFR 45; Glucose 149 mg/dL (83-110); Magnesium 1.7 mg/dL (1.6-2.6); Potassium 4.3 mmol/L (3.5-5.1); Protein, Total 4.7 g/dL (5.8-8.1); Sodium 140 mmol/L (136-145)
[2022-04-22 10:39] LABS: Band 31 % (5-11); Lymphocytes 2 % (21-51); MDiff Complete? YES; Metamyelocyte 4 % (0-0); Monocytes 2 % (0-10); Myelocyte 2 % (0-0); Neutrophil 59 % (42-75); Nucleated RBC 7 % (0); Platelet Morphology Comment Appears Decreased; Polychromasia MODERATE = 3-4 cells (100X) (0-2/hpf)
[2022-04-22 10:59] LABS: Phosphorus 3.4 mg/dL (2.3-4.7)
[2022-04-22] MEDS ORDERED: Furosemide 20 MG/2 ML VIAL ONE (12:53)
[2022-04-22] MEDS ORDERED: CALCIUM GLUC 1 GM/NS 50 ML BAG ONE (12:54)
[2022-04-22] MEDS ORDERED: Acetaminophen 325 MG TAB PO PRN ×2 (14:25→14:30)
[2022-04-22] MEDS ORDERED: Ondansetron ODT 4 MG TAB PO PRN (14:25)
[2022-04-22] MEDS ORDERED: Ondansetron PF 4 MG/2 ML Vial IVP PRN (14:30)
[2022-04-22] MEDS ORDERED: Ondansetron ODT 4 MG TAB SL PRN (14:30)
[2022-04-22 14:45] VITALS: BMI 29.5
[2022-04-22] MEDS ORDERED: ISOVUE-370 76%-LOCM 1 ML ONE (14:57)
[2022-04-22] MEDS ORDERED: Polyethylene Glycol 3350 17 GM Packet PO PRN (15:03)
[2022-04-22] MEDS ORDERED: Docusate 100 MG CAP PO PRN (15:03)
[2022-04-22] MEDS ORDERED: Furosemide 20 MG/2 ML VIAL SLOW IVP SCH ×2 (15:15→19:00)
[2022-04-22] MEDS ORDERED: Ferrous Sulfate 325 MG TAB PO SCH ×2 (17:00→18:00)
[2022-04-22 19:51] LABS: Hemoglobin 7.6 g/dL (14.0-18.0)
[2022-04-22] MEDS: Losartan 25 MG TAB PO SCH (21:02)
[2022-04-22] MEDS: Doxazosin Mesylate 4 MG TAB PO SCH (21:03)
[2022-04-22] MEDS: Senokot S 8.6-50 MG TAB PO SCH (21:03)
[2022-04-22] MEDS: Polyethylene Glycol 3350 17 GM Packet PO SCH (21:03)
[2022-04-23 05:03] LABS: Hemoglobin 6.6 g/dL (14.0-18.0); Mean Corpuscular HGB CONC 32.7 g/dL (32.0-36.0); Mean Corpuscular Hemoglobin 28.8 pg (27.0-31.0); Mean Corpuscular Volume 88.1 fl (78.0-98.0); Platelet Count 111 10x3/uL (130-400); Red Blood Cell (RBC) Count 2.27 mill/uL (4.70-6.10)
[2022-04-23 05:09] LABS: Anion Gap 11 mmol/L (10-20); BUN (Urea Nitrogen) 59 mg/dL (8.4-25.7); Calc. Creatinine Clearance 50 mL/min (70-130); Calcium 8.6 mg/dL (7.8-10.44); Carbon Dioxide 22 mmol/L (23-31); Chloride 111 mmol/L (98-107); Estimated GFR 44; Glucose 127 mg/dL (83-110); Potassium 4.1 mmol/L (3.5-5.1); Sodium 140 mmol/L (136-145)
[2022-04-23 05:34] LABS: Anisocytosis MODERATE=16-30 cells (100X) (0-5/hpf); Band 13 % (5-11); Lymphocytes 1 % (21-51); MDiff Complete? YES; Macrocytosis SLIGHT = 6-15 cells (100X) (0-5/hpf); Metamyelocyte 1 % (0-0); Monocytes 2 % (0-10); Myelocyte 4 % (0-0); Neutrophil 79 % (42-75); Nucleated RBC 2 % (0); Platelet Morphology Comment Appears Decreased; Polychromasia SLIGHT = 2-3 cells (100X) (0-2/hpf); White Blood Cell (WBC) Count 48.4 10x3/uL (4.8-10.8)
[2022-04-23] MEDS: Losartan 25 MG TAB PO SCH ×2 (08:05→20:36)
[2022-04-23] MEDS: Cholecalciferol 1,000 UNITS (25 MCG) TAB PO SCH (08:05)
[2022-04-23] MEDS: Cyanocobalamin (Vitamin B-12) 1,000 MCG TAB PO SCH (08:05)
[2022-04-23] MEDS: Senokot S 8.6-50 MG TAB PO SCH ×2 (08:06→20:36)
[2022-04-23] MEDS: Polyethylene Glycol 3350 17 GM Packet PO SCH ×2 (08:06→20:36)
[2022-04-23] MEDS ORDERED: Iron, Sodium Ferric Gluconate 125 MG in Sodium Chloride 0.9% 100 ML IVPB SCH (15:15)
[2022-04-23] MEDS: Doxazosin Mesylate 4 MG TAB PO SCH (20:37)
[2022-04-24 04:06] VITALS: TEMP 97.8
[2022-04-24 05:51] LABS: Hemoglobin 7.3 g/dL (14.0-18.0); Mean Corpuscular HGB CONC 32.8 g/dL (32.0-36.0); Mean Corpuscular Hemoglobin 29.1 pg (27.0-31.0); Mean Corpuscular Volume 88.7 fl (78.0-98.0); Mean Platelet Volume 8.8 fL (7.4-10.4); Platelet Count 106 10x3/uL (130-400); RBC Distribution Width 24.7 % (11.5-14.5); Red Blood Cell (RBC) Count 2.49 mill/uL (4.70-6.10)
[2022-04-24 06:02] LABS: Anion Gap 11 mmol/L (10-20); BUN (Urea Nitrogen) 49 mg/dL (8.4-25.7); Calc. Creatinine Clearance 55 mL/min (70-130); Calcium 8.7 mg/dL (7.8-10.44); Carbon Dioxide 23 mmol/L (23-31); Chloride 112 mmol/L (98-107); Estimated GFR 50; Glucose 109 mg/dL (83-110); Potassium 4.3 mmol/L (3.5-5.1); Sodium 142 mmol/L (136-145)
[2022-04-24 06:49] LABS: Anisocytosis MODERATE=16-30 cells (100X) (0-5/hpf); Band 2 % (5-11); Eosinophils 1 % (0-10); Hypochromia SLIGHT = 6-15 cells (100X) (0-5/hpf); Lymphocytes 3 % (21-51); MDiff Complete? YES; Metamyelocyte 4 % (0-0); Monocytes 3 % (0-10); Myelocyte 1 % (0-0); Neutrophil 86 % (42-75); Nucleated RBC 5 % (0); Platelet Morphology Comment Appears Decreased; Polychromasia MODERATE = 3-4 cells (100X) (0-2/hpf); Tear Drops SLIGHT = 2-5 cells (100X) (0-1/hpf); White Blood Cell (WBC) Count 27.5 10x3/uL (4.8-10.8)
[2022-04-24 08:20] VITALS: BP 134/61
[2022-04-24] MEDS: Losartan 25 MG TAB PO SCH (08:58)
[2022-04-24] MEDS: Polyethylene Glycol 3350 17 GM Packet PO SCH (08:59)
[2022-04-24] MEDS: Senokot S 8.6-50 MG TAB PO SCH (08:59)
[2022-04-24] MEDS: Cyanocobalamin (Vitamin B-12) 1,000 MCG TAB PO SCH (08:59)
[2022-04-24] MEDS: Cholecalciferol 1,000 UNITS (25 MCG) TAB PO SCH (08:59)
== END 2022-04-24 10:34 | disposition home or self-care (01) ==
LOC: ERS 08:50 → 2SW 14:17
PROVIDERS: ADMIT Family Medicine; ATTEND Family Medicine
DX: D50.9 Iron deficiency anemia, unspecified (principal); C25.9 Malignant neoplasm of pancreas, unspecified; D75.81 Myelofibrosis; C79.89 Secondary malignant neoplasm of other specified sites; D72.829 Elevated white blood cell count, unspecified; N18.32 Chronic kidney disease, stage 3b; N17.9 Acute kidney failure, unspecified; I48.0 Paroxysmal atrial fibrillation; I25.10 Atherosclerotic heart disease of native coronary artery without angina pectoris; F17.220 Nicotine dependence, chewing tobacco, uncomplicated; K76.6 Portal hypertension; E78.5 Hyperlipidemia, unspecified; N40.0 Benign prostatic hyperplasia without lower urinary tract symptoms; K59.00 Constipation, unspecified; K57.30 Diverticulosis of large intestine without perforation or abscess without bleeding; K76.9 Liver disease, unspecified; E79.0 Hyperuricemia without signs of inflammatory arthritis and tophaceous disease; Z79.899 Other long term (current) drug therapy; Z91.041 Radiographic dye allergy status; Z20.822 Contact with and (suspected) exposure to COVID-19
CPT/HCPCS: 36430 ×2; 71275; 74177; 80048 ×2; 80053; 82728; 83010; 83540; 83615; 83735; 84100; 84484; 84550; 85014 ×2; 85018 ×2; 85025 ×3; 85610; 85730; 86850; 86900; 86901; 86920; 93005; 96374; 96375 ×2; 96376; 99285; G0378 ×4; J0611; P9016 ×2; U0003; U0005; 36415; 85060; 96361; 96365; J1200; J1940; J2270; J2405; J2916; J2920; J3490; Q9966; S0028

== ENCOUNTER 2022-04-29 10:07 | Day surgery (SDC) | payer MEDICARE, OTHER ==
[2022-04-29] MEDS ORDERED: diphenhydrAMINE 25 MG CAP PO SCH (10:30)
[2022-04-29] MEDS ORDERED: diphenhydrAMINE 25 MG CAP ONE (10:30)
[2022-04-29] MEDS ORDERED: Acetaminophen 500 MG TAB ONE (10:30)
[2022-04-29] MEDS ORDERED: Acetaminophen 500 MG TAB PO SCH (10:30)
[2022-04-29] MEDS ORDERED: Furosemide 20 MG/2 ML VIAL SLOW IVP SCH (10:45)
[2022-04-29] MEDS ORDERED: Furosemide 20 MG/2 ML VIAL ONE (13:04)
[2022-04-29 16:30] VITALS: BP 130/62; TEMP 98
[2022-04-29 17:41] LABS: Hemoglobin 8.1 g/dL (14.0-18.0); Mean Corpuscular HGB CONC 31.9 g/dL (32.0-36.0); Mean Corpuscular Hemoglobin 30.4 pg (27.0-31.0); Mean Corpuscular Volume 95.4 fl (78.0-98.0); Mean Platelet Volume 7.5 fL (7.4-10.4); Platelet Count 263 10x3/uL (130-400); RBC Distribution Width 20.5 % (11.5-14.5); Red Blood Cell (RBC) Count 2.66 mill/uL (4.70-6.10)
[2022-04-29 18:41] LABS: Band 1 % (5-11); Eosinophils 1 % (0-10); Lymphocytes 7 % (21-51); MDiff Complete? YES; Monocytes 10 % (0-10); Neutrophil 81 % (42-75); Nucleated RBC 3 % (0); Platelet Morphology Comment Appears Adequate; RBC Morphology Normal
== END 2022-04-29 17:35 | disposition home or self-care (01) ==
LOC: ONC/OP 10:07
PROVIDERS: ATTEND Internal Medicine Hematology & Oncology
PROC: 30233N1 Transfusion of Nonautologous Red Blood Cells into Peripheral Vein, Percutaneous Approach (ICD-10-PCS; principal; 2022-04-29)
DX: D64.9 Anemia, unspecified (principal); Z91.041 Radiographic dye allergy status
CPT/HCPCS: 36430; 36591; 85025; 86850; 86900; 86901; J1642; J1940; P9016

== ENCOUNTER 2022-05-26 08:57 | Day surgery (SDC) | payer MEDICARE, OTHER ==
[2022-05-26] MEDS ORDERED: Acetaminophen 500 MG TAB ONE (09:55)
[2022-05-26] MEDS ORDERED: diphenhydrAMINE 25 MG CAP ONE (09:55)
[2022-05-26] MEDS ORDERED: Acetaminophen 500 MG TAB PO SCH (10:00)
[2022-05-26] MEDS ORDERED: diphenhydrAMINE 25 MG CAP PO SCH (10:00)
[2022-05-26 12:46] VITALS: BP 153/63; TEMP 97.7
== END 2022-05-26 15:22 | disposition home or self-care (01) ==
LOC: ONC/OP 08:57
PROVIDERS: ATTEND Internal Medicine Hematology & Oncology
PROC: 30233N1 Transfusion of Nonautologous Red Blood Cells into Peripheral Vein, Percutaneous Approach (ICD-10-PCS; principal; 2022-05-26)
DX: D64.9 Anemia, unspecified (principal); D69.6 Thrombocytopenia, unspecified; Z91.041 Radiographic dye allergy status
CPT/HCPCS: 36430; 86850; 86900; 86901; 86920; P9016; J1642

== ENCOUNTER 2022-06-13 09:39 | Outpatient (CLI) | payer MEDICARE, OTHER ==
[~2022-06-13 09:39] MED LIST changes: -Acetaminophen 500 MG TAB ONE; -Acetaminophen 500 MG TAB PO SCH; +Iopamidol 370 76% 100 ML VIAL ONE; -diphenhydrAMINE 25 MG CAP PO SCH
== END 2022-06-13 09:40 | disposition home or self-care (01) ==
LOC: CT 09:39
PROVIDERS: ATTEND Internal Medicine Hematology & Oncology
DX: C25.1 Malignant neoplasm of body of pancreas (principal); C78.7 Secondary malignant neoplasm of liver and intrahepatic bile duct; K76.9 Liver disease, unspecified; K86.2 Cyst of pancreas
CPT/HCPCS: 71260; 74177; Q9967

== ENCOUNTER 2022-09-23 08:54 | Day surgery (SDC) | payer MEDICARE, OTHER ==
[2022-09-23] MEDS ORDERED: Acetaminophen 500 MG TAB PO SCH (09:15)
[2022-09-23] MEDS ORDERED: diphenhydrAMINE 25 MG CAP PO SCH (09:15)
[2022-09-23 13:21] VITALS: BP 146/65; TEMP 97.7
== END 2022-09-23 12:59 | disposition home or self-care (01) ==
LOC: ONC/OP 08:54
PROVIDERS: ATTEND Internal Medicine Hematology & Oncology
DX: D64.9 Anemia, unspecified (principal); D69.6 Thrombocytopenia, unspecified
CPT/HCPCS: 36430; 86850; 86900; 86901; 86920; P9016; J1642

== ENCOUNTER 2022-09-30 09:00 | Day surgery (SDC) | payer MEDICARE, OTHER ==
[~2022-09-30 09:00] MED LIST changes: +Acetaminophen 500 MG TAB PO SCH; -Iopamidol 370 76% 100 ML VIAL ONE; +diphenhydrAMINE 25 MG CAP PO SCH
[2022-09-30] MEDS ORDERED: diphenhydrAMINE 25 MG CAP ONE (10:20)
[2022-09-30] MEDS ORDERED: Acetaminophen 500 MG TAB ONE (10:20)
[2022-09-30 13:18] VITALS: BP 161/66; TEMP 97.6
== END 2022-09-30 13:46 | disposition home or self-care (01) ==
LOC: ONC/OP 09:00
PROVIDERS: ATTEND Internal Medicine Hematology & Oncology
DX: D64.9 Anemia, unspecified (principal); D69.59 Other secondary thrombocytopenia
CPT/HCPCS: 36430; 86850; 86900; 86901; 86920; P9040; J1642

== ENCOUNTER → 2022-10-03 | Day surgery (SDC) | payer MEDICARE, OTHER ==
[~2022-10-03] MED LIST changes: +Acetaminophen 500 MG TAB ONE; +Ondansetron 2MG/ML MDV 8 MG in Sodium Chloride 0.9% 50 ML IVPB SCH; +Ondansetron PF 4 MG/2 ML Vial ONE
[2022-10-03 16:29] VITALS: BP 131/63; TEMP 98.5
== END ==
LOC: ONC/OP 10:04
PROVIDERS: ATTEND Internal Medicine Hematology & Oncology
DX: D64.9 Anemia, unspecified (principal)
CPT/HCPCS: 36430; 86850; 86900; 86901; 86920; P9016; 96365; J1642; J2405

== ENCOUNTER 2022-10-06 12:21 | Day surgery (SDC) | payer MEDICARE, OTHER ==
[2022-10-06] MEDS ORDERED: Acetaminophen 500 MG TAB ONE (13:05)
[2022-10-06] MEDS ORDERED: diphenhydrAMINE 25 MG CAP PO SCH (13:15)
[2022-10-06] MEDS ORDERED: Acetaminophen 500 MG TAB PO SCH (13:15)
[2022-10-06 16:05] VITALS: BP 125/58; TEMP 98.1
== END 2022-10-06 16:07 | disposition short-term general hospital (02) ==
LOC: ONC/OP 12:21
PROVIDERS: ATTEND Internal Medicine Hematology & Oncology
DX: D64.9 Anemia, unspecified (principal)
CPT/HCPCS: 36430; 80053; 83690; 85025; 85610; 85730; 86850; 86900; 86901; 86920; 96374; 96375; 99284; G0463; P9016; 36415; 99212; C9113; J2354

== ENCOUNTER 2022-10-06 16:15 | Emergency (ER) | payer MEDICARE, OTHER ==
[2022-10-06 17:04] LABS: Hematocrit 20.2 % (42.0-52.0); Hemoglobin 6.6 g/dL (14.0-18.0); Mean Corpuscular HGB CONC 32.7 g/dL (32.0-36.0); Mean Corpuscular Hemoglobin 31.9 pg (27.0-31.0); Mean Corpuscular Volume 97.6 fl (78.0-98.0); Mean Platelet Volume 10.7 fL (7.4-10.4); Platelet Count 133 10x3/uL (130-400); Red Blood Cell (RBC) Count 2.07 mill/uL (4.70-6.10); White Blood Cell (WBC) Count 50.5 10x3/uL (4.8-10.8)
[2022-10-06 17:09] LABS: Delete Auto Diff?? YES; Manual Diff?? YES
[2022-10-06 17:22] LABS: INR-International Normal Ratio 1.1; PTT 36.4 sec (22.9-36.1); Prothrombin Time 14.7 sec (12.0-14.7)
[2022-10-06 17:28] LABS: Anisocytosis SLIGHT = 6-15 cells HPF (0-5); Band 27 % (5-11); CellaVision Operator ID LAB.KB; Lymphocytes 2 % (21-51); Monocytes 2 % (0-10); Myelocyte 1 % (0-0); Neutrophil 68 % (42-75); Nucleated RBC (Manual Ct) 6 % (0); Platelet Adequacy Comment Platelets Normal; Polychromasia SLIGHT = 2-3 cells HPF (0-2); Smudge Cells 17.2 %; Tear Drops SLIGHT = 2-5 cells HPF (0-1); Total Cell Count 99
[2022-10-06 17:33] LABS: ALT (SGPT) 15 U/L (8-55); AST (SGOT) 16 U/L (5-34); Albumin 2.9 g/dL (3.4-4.8); Alkaline Phosphatase 152 U/L (40-110); Anion Gap 8 mmol/L (10-20); BUN (Urea Nitrogen) 54 mg/dL (8.4-25.7); Bilirubin, Total 0.6 mg/dL (0.2-1.2); Calc. Creatinine Clearance 0 mL/min (70-130); Calcium 8.5 mg/dL (7.8-10.44); Carbon Dioxide 25 mmol/L (23-31); Chloride 108 mmol/L (98-107); Estimated GFR 51; Globulin 1.7 g/dL (2.4-3.5); Glucose 157 mg/dL (83-110); Lipase 18 U/L (8-78); Protein, Total 4.6 g/dL (5.8-8.1); Sodium 137 mmol/L (136-145)
[2022-10-06] MEDS ORDERED: Octreotide Acetate 100 MCG/ML VIAL ONE (20:24)
[2022-10-06] MEDS ORDERED: Pantoprazole 40 MG VIAL ONE (20:24)
== END 2022-10-06 21:13 | disposition short-term general hospital (02) ==
LOC: ERS 16:15
DX: I86.4 Gastric varices (principal); D64.9 Anemia, unspecified; K92.2 Gastrointestinal hemorrhage, unspecified; I10 Essential (primary) hypertension; F17.220 Nicotine dependence, chewing tobacco, uncomplicated; Z79.899 Other long term (current) drug therapy
CPT/HCPCS: 36415; 80053; 83690; 85025; 85610; 85730; 86850; 86900; 86901; 96374; 96375; C9113; J2354; P9016

== ENCOUNTER 2022-10-19 09:34 | Emergency (ER) | payer MEDICARE, OTHER ==
[2022-10-19 11:01] LABS: Hemoglobin 4.3 g/dL (14.0-18.0); Mean Corpuscular HGB CONC 30.7 g/dL (32.0-36.0); Mean Corpuscular Hemoglobin 30.1 pg (27.0-31.0); Mean Corpuscular Volume 97.9 fl (78.0-98.0); Mean Platelet Volume 10.6 fL (7.4-10.4); Platelet Count 146 10x3/uL (130-400); RBC Distribution Width 18.5 % (11.5-14.5); Red Blood Cell (RBC) Count 1.43 mill/uL (4.70-6.10); White Blood Cell (WBC) Count 35.8 10x3/uL (4.8-10.8)
[2022-10-19 11:17] LABS: INR-International Normal Ratio 1.1; Manual Diff?? YES; PTT 28.6 sec (22.9-36.1); Prothrombin Time 15.1 sec (12.0-14.7)
[2022-10-19 11:18] LABS: ALT (SGPT) 15 U/L (8-55); AST (SGOT) 12 U/L (5-34); Albumin 2.6 g/dL (3.4-4.8); Alkaline Phosphatase 125 U/L (40-110); Anion Gap 10 mmol/L (10-20); BUN (Urea Nitrogen) 59 mg/dL (8.4-25.7); Bilirubin, Total 0.2 mg/dL (0.2-1.2); Calc. Creatinine Clearance 0 mL/min (70-130); Carbon Dioxide 21 mmol/L (23-31); Chloride 112 mmol/L (98-107); Delete Auto Diff?? YES; Estimated GFR 51; Globulin 1.4 g/dL (2.4-3.5); Glucose 98 mg/dL (83-110); Potassium 4.7 mmol/L (3.5-5.1); Sodium 138 mmol/L (136-145)
[2022-10-19 11:23] LABS: Troponin I Less than 0.010 ng/mL (< 0.028)
[2022-10-19 12:17] LABS: Band 31 % (5-11); CellaVision Operator ID LAB.GE; Dohle Bodies SLIGHT; Hypochromia SLIGHT = 6-15 cells HPF (0-5); Lymphocytes 3 % (21-51); Monocytes 2 % (0-10); Myelocyte 1 % (0-0); Neutrophil 63 % (42-75); Nucleated RBC (Manual Ct) 2 % (0); Platelet Adequacy Comment Platelets Normal; Polychromasia SLIGHT = 2-3 cells HPF (0-2); Reflex for Review?? YES; Total Cell Count 100
[2022-10-19] MEDS ORDERED: Pantoprazole 40 MG VIAL ONE (13:30)
[2022-10-19] MEDS ORDERED: cefTRIAXone (ROCEPHIN) 2 GM VIAL ONE (13:30)
[2022-10-19 16:27] LABS: Hematocrit 18.4 % (42.0-52.0); Hemoglobin 5.9 g/dL (14.0-18.0); Mean Corpuscular HGB CONC 32.1 g/dL (32.0-36.0); Mean Corpuscular Hemoglobin 30.7 pg (27.0-31.0); Mean Corpuscular Volume 95.8 fl (78.0-98.0); Mean Platelet Volume 10.3 fL (7.4-10.4); Platelet Count 145 10x3/uL (130-400); RBC Distribution Width 17.2 % (11.5-14.5); Red Blood Cell (RBC) Count 1.92 mill/uL (4.70-6.10); White Blood Cell (WBC) Count 38.8 10x3/uL (4.8-10.8)
[2022-10-19 16:31] LABS: Delete Auto Diff?? YES; Manual Diff?? YES
[2022-10-19] MEDS ORDERED: Acetaminophen 500 MG TAB ONE (16:53)
[2022-10-19 16:54] LABS: Anisocytosis SLIGHT = 6-15 cells HPF (0-5); Band 34 % (5-11); Burr Cells SLIGHT = 2-5 cells HPF (0-1); CellaVision Operator ID LAB.MJL; Dohle Bodies SLIGHT; Hypochromia SLIGHT = 6-15 cells HPF (0-5); Lymphocytes 2 % (21-51); Neutrophil 64 % (42-75); Nucleated RBC (Manual Ct) 2 % (0); Ovalocytes SLIGHT = 2-5 cells HPF (0-1); Platelet Adequacy Comment Platelets Normal; Poikilocytosis SLIGHT = 6-15 cells HPF (0-5); Polychromasia MODERATE = 3-4 cells HPF (0-2); Schistocytes SLIGHT = 2-5 cells HPF (0-1); Tear Drops SLIGHT = 2-5 cells HPF (0-1); Total Cell Count 100
== END 2022-10-19 18:38 | disposition short-term general hospital (02) ==
LOC: ERS 09:34
DX: K92.2 Gastrointestinal hemorrhage, unspecified (principal); N28.9 Disorder of kidney and ureter, unspecified; D64.9 Anemia, unspecified; I10 Essential (primary) hypertension; F17.220 Nicotine dependence, chewing tobacco, uncomplicated
CPT/HCPCS: 36430; 71045; 74176; 80053; 84484; 85025 ×2; 85610; 85730; 86850; 86900; 86901; 86920; 93005; 96361; 96365; 96375; 99285; P9016; 85060; C9113; J0696

== ENCOUNTER 2022-10-25 09:58 | Day surgery (SDC) | payer MEDICARE, OTHER ==
[2022-10-25] MEDS ORDERED: diphenhydrAMINE 25 MG CAP PO SCH (10:30)
[2022-10-25] MEDS ORDERED: Acetaminophen 500 MG TAB PO SCH (10:30)
[2022-10-25] MEDS ORDERED: Acetaminophen 500 MG TAB ONE (10:54)
[2022-10-25 14:23] VITALS: BP 140/65; TEMP 98.3
== END 2022-10-25 13:45 | disposition home or self-care (01) ==
LOC: ONC/OP 09:58
PROVIDERS: ATTEND Internal Medicine Hematology & Oncology
DX: D64.9 Anemia, unspecified (principal); Z91.041 Radiographic dye allergy status
CPT/HCPCS: 36430; 86850; 86900; 86901; 86920; P9016; J1642

== ENCOUNTER 2022-10-27 10:44 | Day surgery (SDC) | payer MEDICARE, OTHER ==
[2022-10-27] MEDS ORDERED: Acetaminophen 500 MG TAB PO SCH (11:15)
[2022-10-27] MEDS ORDERED: diphenhydrAMINE 25 MG CAP PO SCH (11:15)
[2022-10-27] MEDS ORDERED: Acetaminophen 500 MG TAB ONE (11:30)
[2022-10-27 14:41] VITALS: BP 105/60; TEMP 98
== END 2022-10-27 14:35 | disposition home or self-care (01) ==
LOC: ONC/OP 10:44
PROVIDERS: ATTEND Internal Medicine Hematology & Oncology
DX: D64.9 Anemia, unspecified (principal)
CPT/HCPCS: 36430; 71260; 74177; 86850; 86900; 86901; 86920; P9016; J1642

== ENCOUNTER 2022-10-31 11:16 | Day surgery (SDC) | payer MEDICARE, OTHER ==
[2022-10-31] MEDS ORDERED: diphenhydrAMINE 25 MG CAP PO SCH (11:45)
[2022-10-31] MEDS ORDERED: Acetaminophen 500 MG TAB PO SCH (11:45)
[2022-10-31] MEDS ORDERED: Acetaminophen 500 MG TAB ONE (11:59)
[2022-10-31 16:35] VITALS: BP 152/67; TEMP 97.9
== END 2022-10-31 16:45 | disposition home or self-care (01) ==
LOC: ONC/OP 11:16
PROVIDERS: ATTEND Internal Medicine Hematology & Oncology
DX: D64.9 Anemia, unspecified (principal); D69.9 Hemorrhagic condition, unspecified; D69.59 Other secondary thrombocytopenia; Z91.041 Radiographic dye allergy status
CPT/HCPCS: 36430; 86850; 86900; 86901; 86920; P9016; J1642

== ENCOUNTER 2022-11-16 09:28 | Inpatient (IN) | payer MEDICARE, OTHER ==
[2022-11-16 10:42] LABS: #Basophils 0.1 thou/uL (0.0-0.2); #Eosinphils 0.1 thou/uL (0.0-0.7); #Monocytes 0.5 thou/uL (0.11-0.59); #Neutrophils 6.6 thou/uL (1.40-6.50); %Lymphocytes 8.6 % (21.0-51.0); %Monocytes 6.4 % (0.0-10.0); %Neutrophils 82.5 % (42.0-75.0); Hematocrit 23.1 % (42.0-52.0); Mean Corpuscular HGB CONC 30.3 g/dL (32.0-36.0); Mean Corpuscular Volume 95.9 fl (78.0-98.0); Mean Platelet Volume 10.8 fL (7.4-10.4); Platelet Count 196 10x3/uL (130-400); RBC Distribution Width 16.6 % (11.5-14.5); Red Blood Cell (RBC) Count 2.41 mill/uL (4.70-6.10)
[2022-11-16 10:58] LABS: INR-International Normal Ratio 1.1; PTT 27.8 sec (22.9-36.1); Prothrombin Time 14.2 sec (12.0-14.7)
[2022-11-16 11:05] LABS: ALT (SGPT) 15 U/L (8-55); AST (SGOT) 15 U/L (5-34); Albumin 2.8 g/dL (3.4-4.8); Alkaline Phosphatase 55 U/L (40-110); Anion Gap 10 mmol/L (10-20); BUN (Urea Nitrogen) 64 mg/dL (8.4-25.7); Bilirubin, Total 0.4 mg/dL (0.2-1.2); Calc. Creatinine Clearance 0 mL/min (70-130); Calcium 8.6 mg/dL (7.8-10.44); Carbon Dioxide 22 mmol/L (23-31); Chloride 116 mmol/L (98-107); Estimated GFR 50; Globulin 1.4 g/dL (2.4-3.5); Glucose 82 mg/dL (83-110); Potassium 4.4 mmol/L (3.5-5.1); Protein, Total 4.2 g/dL (5.8-8.1); Sodium 144 mmol/L (136-145)
[2022-11-16] MEDS ORDERED: Sodium Chloride 0.9% 1,000 ML IV SCH (12:30)
[2022-11-16] MEDS ORDERED: Octreotide Acetate 50 MCG/ML AMP SLOW IVP SCH (13:00)
[2022-11-16 14:33] VITALS: BMI 29.9
[2022-11-16] MEDS ORDERED: FLU VACC QS2023(65UP)/MF59C/PF 60 MCG/0.5 ML SYRINGE IM ONE (15:15)
[2022-11-16] MEDS ORDERED: Pantoprazole 40 MG VIAL IVP SCH ×2 (15:30→21:00)
[2022-11-16] MEDS: Lactated Ringer's 1,000 ML IV SCH ×2 (18:07→21:12)
[2022-11-16] MEDS ORDERED: Ondansetron PF 4 MG/2 ML Vial ONE (19:54)
[2022-11-16] MEDS ORDERED: PROPOFOL 200 MG/20 ML VIAL ONE (19:54)
[2022-11-16] MEDS ORDERED: Lidocaine 1% PF 5 ML VIAL ONE (19:54)
[2022-11-16] MEDS ORDERED: Succinylcholine 200 MG/10 ml SYRINGE FS ONE (19:54)
[2022-11-16] MEDS ORDERED: Ondansetron HCl/PF 4 MG/2 ML Vial IVP PRN (19:55)
[2022-11-16] MEDS ORDERED: Promethazine HCl 25 MG/ML VIAL IM PRN (19:55)
[2022-11-16] MEDS ORDERED: Furosemide 20 MG/2 ML VIAL SLOW IVP SCH (20:00)
[2022-11-16 23:05] LABS: Hematocrit 27.3 % (42.0-52.0); Hemoglobin 8.8 g/dL (14.0-18.0)
[2022-11-16] MEDS ORDERED: RUXOLITINIB PHOSPHATE 15 MG PO SCH (23:15)
[2022-11-17] MEDS: Octreotide Acetate 1,250 MCG in Sodium Chloride 0.9% 250 ML 250 ML IVPB SCH (02:36)
[2022-11-17] MEDS: Lactated Ringer's 1,000 ML IV SCH (03:40)
[2022-11-17 06:47] LABS: #Eosinphils 0.1 thou/uL (0.0-0.7); #Monocytes 0.3 thou/uL (0.11-0.59); #Neutrophils 3.8 thou/uL (1.40-6.50); %Basophils 0.9 % (0.0-1.0); %Eosinophils 2.4 % (0.0-10.0); %Monocytes 5.4 % (0.0-10.0); %Neutrophils 82.9 % (42.0-75.0); Hematocrit 24.9 % (42.0-52.0); Hemoglobin 7.9 g/dL (14.0-18.0); Mean Corpuscular HGB CONC 31.7 g/dL (32.0-36.0); Mean Corpuscular Hemoglobin 29.6 pg (27.0-31.0); Mean Corpuscular Volume 93.3 fl (78.0-98.0); Mean Platelet Volume 10.3 fL (7.4-10.4); Platelet Count 133 10x3/uL (130-400); RBC Distribution Width 16.9 % (11.5-14.5); Red Blood Cell (RBC) Count 2.67 mill/uL (4.70-6.10); White Blood Cell (WBC) Count 4.6 10x3/uL (4.8-10.8)
[2022-11-17 07:27] LABS: ALT (SGPT) 16 U/L (8-55); AST (SGOT) 16 U/L (5-34); Albumin 2.5 g/dL (3.4-4.8); Alkaline Phosphatase 48 U/L (40-110); Anion Gap 9 mmol/L (10-20); BUN (Urea Nitrogen) 48 mg/dL (8.4-25.7); Bilirubin, Total Less than 1.0 mg/dL (0.2-1.2); Calc. Creatinine Clearance 53 mL/min (70-130); Calcium 8.3 mg/dL (7.8-10.44); Carbon Dioxide 23 mmol/L (23-31); Chloride 113 mmol/L (98-107); Estimated GFR 48; Globulin 1.3 g/dL (2.4-3.5); Glucose 106 mg/dL (83-110); Potassium 4.7 mmol/L (3.5-5.1); Protein, Total 3.8 g/dL (5.8-8.1); Sodium 140 mmol/L (136-145)
[2022-11-17] MEDS ORDERED: Furosemide 20 MG/2 ML VIAL SLOW IVP SCH (07:30)
[2022-11-17] MEDS: Losartan 25 MG TAB PO SCH ×2 (08:09→21:53)
[2022-11-17] MEDS: Cyanocobalamin (Vitamin B-12) 1,000 MCG TAB PO SCH (08:09)
[2022-11-17] MEDS ORDERED: Non-Formulary Item 1 EACH (Olmesartan Medoxomil [Olmesartan Medoxomil] 20 MG Tablet) PO SCH (09:00)
[2022-11-17] MEDS ORDERED: Cyanocobalamin (Vitamin B-12) 1,000 MCG TAB PO SCH (09:00)
[2022-11-17] MEDS ORDERED: RUXOLITINIB PHOSPHATE 15 MG PO SCH ×2 (09:00)
[2022-11-17] MEDS ORDERED: Pantoprazole 40 MG VIAL IVP SCH (10:45)
[2022-11-17 12:38] LABS: Hematocrit 27.9 % (42.0-52.0); Hemoglobin 8.8 g/dL (14.0-18.0)
[2022-11-17] MEDS ORDERED: Multivit, Therapeutic 1 TAB PO SCH (21:00)
[2022-11-17] MEDS ORDERED: Doxazosin Mesylate 4 MG TAB PO SCH (21:00)
[2022-11-17] MEDS ORDERED: Folic Acid 1 MG TAB PO SCH (21:00)
[2022-11-17] MEDS: Folic Acid 1 MG TAB PO SCH (21:52)
[2022-11-17] MEDS: Multivit, Therapeutic 1 TAB PO SCH (21:53)
[2022-11-17] MEDS: Pantoprazole 40 MG VIAL IVP SCH (21:54)
[2022-11-17] MEDS: Doxazosin 2 MG TAB PO SCH (21:55)
[2022-11-17] MEDS: Propranolol 10 MG TAB PO SCH (21:56)
[2022-11-18] MEDS: Acetaminophen 500 MG TAB PO PRN ×2 (01:43→19:26)
[2022-11-18] MEDS: Octreotide Acetate 1,250 MCG in Sodium Chloride 0.9% 250 ML 250 ML IVPB SCH (03:35)
[2022-11-18 07:22] LABS: #Eosinphils 0.2 thou/uL (0.0-0.7); #Monocytes 0.3 thou/uL (0.11-0.59); #Neutrophils 4.4 thou/uL (1.40-6.50); %Basophils 0.6 % (0.0-1.0); %Eosinophils 3.1 % (0.0-10.0); %Lymphocytes 6.9 % (21.0-51.0); %Monocytes 5.2 % (0.0-10.0); %Neutrophils 83.8 % (42.0-75.0); Hematocrit 27.3 % (42.0-52.0); Hemoglobin 8.6 g/dL (14.0-18.0); Mean Corpuscular HGB CONC 31.5 g/dL (32.0-36.0); Mean Corpuscular Hemoglobin 29.9 pg (27.0-31.0); Mean Corpuscular Volume 94.8 fl (78.0-98.0); Mean Platelet Volume 10.5 fL (7.4-10.4); Platelet Count 150 10x3/uL (130-400); RBC Distribution Width 16.3 % (11.5-14.5); Red Blood Cell (RBC) Count 2.88 mill/uL (4.70-6.10); White Blood Cell (WBC) Count 5.2 10x3/uL (4.8-10.8)
[2022-11-18 07:46] LABS: ALT (SGPT) 19 U/L (8-55); AST (SGOT) 17 U/L (5-34); Albumin 2.7 g/dL (3.4-4.8); Alkaline Phosphatase 52 U/L (40-110); Anion Gap 9 mmol/L (10-20); BUN (Urea Nitrogen) 40 mg/dL (8.4-25.7); Bilirubin, Total 0.8 mg/dL (0.2-1.2); Calc. Creatinine Clearance 52 mL/min (70-130); Calcium 8.4 mg/dL (7.8-10.44); Carbon Dioxide 25 mmol/L (23-31); Chloride 108 mmol/L (98-107); Estimated GFR 46; Globulin 1.4 g/dL (2.4-3.5); Glucose 119 mg/dL (83-110); Potassium 4.4 mmol/L (3.5-5.1); Protein, Total 4.1 g/dL (5.8-8.1); Sodium 138 mmol/L (136-145)
[2022-11-18] MEDS: Propranolol 10 MG TAB PO SCH ×2 (10:27→20:26)
[2022-11-18] MEDS: Losartan 25 MG TAB PO SCH ×2 (10:28→20:20)
[2022-11-18] MEDS: Cyanocobalamin (Vitamin B-12) 1,000 MCG TAB PO SCH (10:28)
[2022-11-18] MEDS: Pantoprazole 40 MG VIAL IVP SCH ×2 (10:29→20:20)
[2022-11-18 16:45] VITALS: TEMP 98.3
[2022-11-18] MEDS: Folic Acid 1 MG TAB PO SCH (20:20)
[2022-11-18] MEDS: Multivit, Therapeutic 1 TAB PO SCH (20:20)
[2022-11-18] MEDS: Doxazosin 2 MG TAB PO SCH (20:26)
[2022-11-18 20:30] VITALS: BP 162/63
== END 2022-11-19 00:01 | disposition home or self-care (01) | DRG 300 ==
LOC: ERS 09:28 → T4-B 12:08 → OBSVTOIN 11-17 14:41
PROVIDERS: ADMIT Family Medicine; ATTEND Family Medicine
PROC: 06L28CZ Occlusion of Gastric Vein with Extraluminal Device, Via Natural or Artificial Opening Endoscopic (ICD-10-PCS; principal; 2022-11-16)
PROC: 30233N1 Transfusion of Nonautologous Red Blood Cells into Peripheral Vein, Percutaneous Approach (ICD-10-PCS; 2022-11-16)
DX: I86.4 Gastric varices (principal); C25.9 Malignant neoplasm of pancreas, unspecified; D62 Acute posthemorrhagic anemia; K76.6 Portal hypertension; D75.81 Myelofibrosis; D46.9 Myelodysplastic syndrome, unspecified; I12.9 Hypertensive chronic kidney disease with stage 1 through stage 4 chronic kidney disease, or unspecified chronic kidney disease; N18.30 Chronic kidney disease, stage 3 unspecified; I25.10 Atherosclerotic heart disease of native coronary artery without angina pectoris; E78.5 Hyperlipidemia, unspecified; N40.0 Benign prostatic hyperplasia without lower urinary tract symptoms; I35.1 Nonrheumatic aortic (valve) insufficiency; I48.0 Paroxysmal atrial fibrillation; Z79.899 Other long term (current) drug therapy
CPT/HCPCS: 36415; 36430; 80053; 82728; 85025; 85610; 85730; 86850; 86900; 86901; 90471; 90694; 93306; 96374; 96375; 96376; 99285; C9113; G0008; G0378; J1940; J2354; J2405; J2704; J7050; J7120; P9016

== ENCOUNTER 2022-12-06 14:02 | Emergency (ER) | payer MEDICARE, OTHER ==
[~2022-12-06 14:02] MED LIST changes: -Acetaminophen 500 MG TAB ONE; -Acetaminophen 500 MG TAB PO SCH; +Iopamidol 370 76% 100 ML VIAL ONE; -Ondansetron 2MG/ML MDV 8 MG in Sodium Chloride 0.9% 50 ML IVPB SCH; -Ondansetron PF 4 MG/2 ML Vial ONE; -diphenhydrAMINE 25 MG CAP PO SCH
[2022-12-06 16:56] LABS: #Monocytes 0.3 thou/uL (0.11-0.59); #Neutrophils 4.6 thou/uL (1.40-6.50); %Basophils 0.4 % (0.0-1.0); %Eosinophils 0.4 % (0.0-10.0); %Lymphocytes 6.3 % (21.0-51.0); Hematocrit 17.8 % (42.0-52.0); Hemoglobin 5.1 g/dL (14.0-18.0); Mean Corpuscular HGB CONC 28.7 g/dL (32.0-36.0); Mean Corpuscular Hemoglobin 28.3 pg (27.0-31.0); Mean Corpuscular Volume 98.9 fl (78.0-98.0); Mean Platelet Volume 11.2 fL (7.4-10.4); Platelet Count 120 10x3/uL (130-400); White Blood Cell (WBC) Count 5.4 10x3/uL (4.8-10.8)
[2022-12-06 17:00] LABS: INR-International Normal Ratio 1.2; PTT 30.5 sec (22.9-36.1); Prothrombin Time 16.2 sec (12.0-14.7)
[2022-12-06 17:12] LABS: ALT (SGPT) 14 U/L (8-55); AST (SGOT) 14 U/L (5-34); Alkaline Phosphatase 62 U/L (40-110); Anion Gap 9 mmol/L (10-20); BUN (Urea Nitrogen) 62 mg/dL (8.4-25.7); Bilirubin, Total 0.3 mg/dL (0.2-1.2); Calc. Creatinine Clearance 0 mL/min (70-130); Calcium 8.1 mg/dL (7.8-10.44); Carbon Dioxide 22 mmol/L (23-31); Chloride 112 mmol/L (98-107); Estimated GFR 56; Globulin 1.1 g/dL (2.4-3.5); Glucose 118 mg/dL (83-110); Lipase 12 U/L (8-78); Potassium 4.4 mmol/L (3.5-5.1); Protein, Total 4.1 g/dL (5.8-8.1); Sodium 139 mmol/L (136-145)
[2022-12-06 17:38] LABS: Anisocytosis MODERATE=16-30 cells HPF (0-5); CellaVision Operator ID LAB.KB; Hypochromia SLIGHT = 6-15 cells HPF (0-5); Ovalocytes SLIGHT = 2-5 cells HPF (0-1); Platelet Adequacy Comment Platelets Decreased; Polychromasia SLIGHT = 2-3 cells HPF (0-2)
[2022-12-06] MEDS ORDERED: Ondansetron PF 4 MG/2 ML Vial ONE (18:33)
[2022-12-06] MEDS ORDERED: Pantoprazole 40 MG VIAL ONE (18:34)
[2022-12-06] MEDS ORDERED: diphenhydrAMINE 50 MG/ML VIAL ONE (19:33)
[2022-12-06] MEDS ORDERED: Famotidine/PF 20 mg/2ml Vial ONE (19:33)
[2022-12-06] MEDS ORDERED: methylPREDNISolone Sod Succ 40 MG VIAL ONE (19:33)
[2022-12-06 19:49] LABS: Troponin I Less than 0.010 ng/mL (< 0.028)
[2022-12-06] MEDS ORDERED: HYDROcodone/Acetaminophen 5/325 mg Tablet ONE (20:06)
[2022-12-06 23:35] LABS: Hematocrit 22.7 % (42.0-52.0); Hemoglobin 6.9 g/dL (14.0-18.0)
[2022-12-06] MEDS ORDERED: cefTRIAXone (ROCEPHIN) 1 GM VIAL ONE (23:55)
[2022-12-07 05:30] LABS: #Monocytes 0.1 thou/uL (0.11-0.59); %Basophils 0.3 % (0.0-1.0); %Lymphocytes 2.8 % (21.0-51.0); %Monocytes 2.2 % (0.0-10.0); %Neutrophils 93.8 % (42.0-75.0); Hemoglobin 7.9 g/dL (14.0-18.0); Mean Corpuscular HGB CONC 30.4 g/dL (32.0-36.0); Mean Corpuscular Hemoglobin 28.8 pg (27.0-31.0); Mean Platelet Volume 11.2 fL (7.4-10.4); Platelet Count 107 10x3/uL (130-400); RBC Distribution Width 22.5 % (11.5-14.5); Red Blood Cell (RBC) Count 2.74 mill/uL (4.70-6.10); White Blood Cell (WBC) Count 6.4 10x3/uL (4.8-10.8)
[2022-12-07 05:36] LABS: Mean Corpuscular Volume 94.9 fl (78.0-98.0)
== END 2022-12-07 05:07 | disposition short-term general hospital (02) ==
LOC: ERS 14:02
DX: K92.2 Gastrointestinal hemorrhage, unspecified (principal); I10 Essential (primary) hypertension; F17.220 Nicotine dependence, chewing tobacco, uncomplicated; Z79.899 Other long term (current) drug therapy
CPT/HCPCS: 36430; 71045; 74177; 80053; 82962; 83690; 83880; 84484; 85014; 85018; 85025; 85610; 85730; 86850; 86900; 86901; 86920; 93005; P9016; 36415; 36416; 82274; 96365; 96375; C9113; J0696; J1200; J2405; J2920; Q9967; S0028

== ENCOUNTER 2023-01-17 09:26 | Outpatient (CLI) | payer MEDICARE, OTHER ==
[2023-01-17] MEDS ORDERED: Iopamidol 370 76% 100 ML VIAL ONE (09:34)
== END 2023-01-17 09:27 | disposition home or self-care (01) ==
LOC: CT 09:26
PROVIDERS: ATTEND Internal Medicine Hematology & Oncology
DX: C25.1 Malignant neoplasm of body of pancreas (principal); C78.7 Secondary malignant neoplasm of liver and intrahepatic bile duct; D73.5 Infarction of spleen; I86.4 Gastric varices; K57.30 Diverticulosis of large intestine without perforation or abscess without bleeding; K86.2 Cyst of pancreas; R16.0 Hepatomegaly, not elsewhere classified; K66.8 Other specified disorders of peritoneum
CPT/HCPCS: 71260; 74177; 82565; Q9967

== ENCOUNTER 2023-02-02 10:42 | Day surgery (SDC) | payer MEDICARE, OTHER ==
[2023-02-02] MEDS ORDERED: Acetaminophen 500 MG TAB PO SCH (11:15)
[2023-02-02] MEDS ORDERED: diphenhydrAMINE 25 MG CAP PO SCH (11:15)
[2023-02-02] MEDS ORDERED: FLU VACC QS2023(65UP)/MF59C/PF 60 MCG/0.5 ML SYRINGE IM ONE (11:30)
[2023-02-02] MEDS ORDERED: Acetaminophen 500 MG TAB ONE (11:52)
[2023-02-02 16:17] VITALS: BP 150/67; TEMP 98.5
== END 2023-02-02 16:18 | disposition home or self-care (01) ==
LOC: ONC/OP 10:42
PROVIDERS: ATTEND Internal Medicine Hematology & Oncology
DX: D64.9 Anemia, unspecified (principal); D69.59 Other secondary thrombocytopenia
CPT/HCPCS: 36430; 86850; 86900; 86901; 86920; 90694; G0008; P9016; 90471; J1642

== ENCOUNTER 2023-02-20 10:04 | Inpatient (IN) | payer MEDICARE, OTHER ==
[2023-02-20] MEDS ORDERED: HYDROmorphone 0.5 MG/0.5 ML SYRINGE ONE (10:42)
[2023-02-20] MEDS ORDERED: diphenhydrAMINE 50 MG/ML VIAL ONE (10:42)
[2023-02-20] MEDS ORDERED: methylPREDNISolone Sod Succ 40 MG VIAL ONE (10:42)
[2023-02-20] MEDS ORDERED: Ondansetron PF 4 MG/2 ML Vial ONE (10:42)
[2023-02-20] MEDS ORDERED: Famotidine/PF 20 mg/2ml Vial ONE (10:43)
[2023-02-20 10:46] LABS: Hematocrit 12.6 % (42.0-52.0); Hemoglobin 4.1 g/dL (14.0-18.0); Manual Diff?? YES; Mean Corpuscular HGB CONC 32.5 g/dL (32.0-36.0); Mean Corpuscular Hemoglobin 31.1 pg (27.0-31.0); Mean Corpuscular Volume 95.5 fl (78.0-98.0); Mean Platelet Volume 10.1 fL (7.4-10.4); Platelet Count 392 10x3/uL (130-400); RBC Distribution Width 19.8 % (11.5-14.5); Red Blood Cell (RBC) Count 1.32 mill/uL (4.70-6.10); White Blood Cell (WBC) Count 91.6 10x3/uL (4.8-10.8)
[2023-02-20 10:55] LABS: Critical Call w/ Read Back NUR.LM21@1055; Delete Auto Diff?? YES
[2023-02-20 11:08] LABS: ALT (SGPT) 17 U/L (8-55); AST (SGOT) 17 U/L (5-34); Albumin 2.8 g/dL (3.4-4.8); Alkaline Phosphatase 121 U/L (40-110); Anion Gap 10 mmol/L (10-20); BUN (Urea Nitrogen) 95 mg/dL (8.4-25.7); Bilirubin, Total 0.5 mg/dL (0.2-1.2); Calc. Creatinine Clearance 0 mL/min (70-130); Calcium 8.6 mg/dL (7.8-10.44); Carbon Dioxide 19 mmol/L (23-31); Chloride 114 mmol/L (98-107); Estimated GFR 52; Globulin 1.7 g/dL (2.4-3.5); Glucose 131 mg/dL (83-110); Lipase 5 U/L (8-78); Potassium 4.7 mmol/L (3.5-5.1); Protein, Total 4.5 g/dL (5.8-8.1)
[2023-02-20 11:24] LABS: Sodium 142 mmol/L (136-145)
[2023-02-20 11:49] LABS: Band 9 % (5-11); Eosinophils 1 % (0-10); Neutrophil 90 % (42-75); Nucleated RBC (Manual Ct) 1 % (0); Polychromasia SLIGHT = 2-3 cells (100X) (0-2/hpf)
[2023-02-20 11:54] LABS: Platelet Adequacy Comment Platelets Normal
[2023-02-20 12:22] LABS: INR-International Normal Ratio 1.4; Prothrombin Time 17.2 sec (12.0-14.7)
[2023-02-20 12:23] LABS: PTT 29.6 sec (22.9-36.1)
[2023-02-20] MEDS ORDERED: Iopamidol-370 76% 500 ML MDV (1 ML CHARGE) ONE (16:03)
[2023-02-20 16:52] LABS: Lactic Acid 2.4 mmol/L (0.5-2.2)
[2023-02-20 17:42] LABS: #Eosinphils 0.1 thou/uL (0.0-0.7); #Monocytes 0.9 thou/uL (0.11-0.59); #Neutrophils 41.4 thou/uL (1.40-6.50); %Eosinophils 0.1 % (0.0-10.0); %Lymphocytes 0.5 % (21.0-51.0); %Monocytes 1.2 % (0.0-10.0); %Neutrophils 53.8 % (42.0-75.0); Hematocrit 15.5 % (42.0-52.0); Manual Diff?? YES; Mean Corpuscular HGB CONC 32.3 g/dL (32.0-36.0); Mean Corpuscular Hemoglobin 30.5 pg (27.0-31.0); Mean Corpuscular Volume 94.5 fl (78.0-98.0); Mean Platelet Volume 10.1 fL (7.4-10.4); Platelet Count 275 10x3/uL (130-400); RBC Distribution Width 18.6 % (11.5-14.5); Red Blood Cell (RBC) Count 1.64 mill/uL (4.70-6.10)
[2023-02-20] MEDS ORDERED: Lactated Ringer's 1,000 ML IV SCH (17:45)
[2023-02-20 17:48] LABS: Critical Call w/ Read Back NUR.LA22@1750
[2023-02-20 18:11] LABS: Anisocytosis SLIGHT = 6-15 cells HPF (0-5); Band 12 % (5-11); CellaVision Operator ID LAB.MJL; Hypochromia SLIGHT = 6-15 cells HPF (0-5); Lymphocytes 1 % (21-51); Metamyelocyte 2 % (0-0); Neutrophil 85 % (42-75); Ovalocytes SLIGHT = 2-5 cells HPF (0-1); Platelet Adequacy Comment Platelets Normal; Poikilocytosis SLIGHT = 6-15 cells HPF (0-5); Polychromasia SLIGHT = 2-3 cells HPF (0-2); Schistocytes SLIGHT = 2-5 cells HPF (0-1); Tear Drops SLIGHT = 2-5 cells HPF (0-1); Total Cell Count 100
[2023-02-20 18:11] LABS: SARS-CoV-2 NAA Rapid Test DETECTED (NotDetected)
[2023-02-20 18:22] LABS: White Blood Cell (WBC) Count 77.1 10x3/uL (4.8-10.8)
[2023-02-20 19:59] VITALS: BMI 28.8
[2023-02-20] MEDS: Lactated Ringer's 1,000 ML IV SCH (21:23)
[2023-02-20] MEDS: Pantoprazole 40 MG VIAL IVP SCH (21:26)
[2023-02-20 23:13] LABS: Hematocrit 18.4 % (42.0-52.0); Hemoglobin 6.1 g/dL (14.0-18.0)
[2023-02-21] MEDS ORDERED: fentaNYL 50 mcg/mL 1 mL Vial SLOW IVP SCH (06:00)
[2023-02-21 06:21] LABS: Hematocrit 20.2 % (42.0-52.0); Hemoglobin 6.3 g/dL (14.0-18.0); Manual Diff?? YES; Mean Corpuscular HGB CONC 31.2 g/dL (32.0-36.0); Mean Corpuscular Volume 96.2 fl (78.0-98.0); Mean Platelet Volume 10.1 fL (7.4-10.4); Platelet Count 190 10x3/uL (130-400); RBC Distribution Width 17.2 % (11.5-14.5); White Blood Cell (WBC) Count 71.2 10x3/uL (4.8-10.8)
[2023-02-21 06:25] LABS: Delete Auto Diff?? YES
[2023-02-21 06:56] LABS: ALT (SGPT) 17 U/L (8-55); AST (SGOT) 18 U/L (5-34); Albumin 2.6 g/dL (3.4-4.8); Alkaline Phosphatase 416 U/L (40-110); Anion Gap 15 mmol/L (10-20); BUN (Urea Nitrogen) 78 mg/dL (8.4-25.7); Bilirubin, Total 0.5 mg/dL (0.2-1.2); Calc. Creatinine Clearance 52 mL/min (70-130); Calcium 8.3 mg/dL (7.8-10.44); Carbon Dioxide 16 mmol/L (23-31); Chloride 115 mmol/L (98-107); Estimated GFR 49; Globulin 1.6 g/dL (2.4-3.5); Glucose 77 mg/dL (83-110); Potassium 4.5 mmol/L (3.5-5.1); Protein, Total 4.2 g/dL (5.8-8.1); Sodium 141 mmol/L (136-145)
[2023-02-21 07:17] LABS: Anisocytosis MODERATE=16-30 cells HPF (0-5); Band 15 % (5-11); CellaVision Operator ID lab.dlt; Hypochromia MODERATE=16-30 cells HPF (0-5); Lymphocytes 1 % (21-51); Monocytes 2 % (0-10); Neutrophil 82 % (42-75); Nucleated RBC (Manual Ct) 1 % (0); Platelet Adequacy Comment Platelets Normal; Poikilocytosis SLIGHT = 6-15 cells HPF (0-5); Polychromasia SLIGHT = 2-3 cells HPF (0-2); Schistocytes SLIGHT = 2-5 cells HPF (0-1); Total Cell Count 102
[2023-02-21] MEDS: Pantoprazole 40 MG VIAL IVP SCH ×2 (08:00→20:35)
[2023-02-21] MEDS: Lactated Ringer's 1,000 ML IV SCH (08:01)
[2023-02-21] MEDS ORDERED: Fentanyl 100 MCG/2 ML VIAL SLOW IVP PRN (08:11)
[2023-02-21] MEDS ORDERED: Morphine 2 MG/ML VIAL SLOW IVP SCH (08:30)
[2023-02-21] MEDS ORDERED: Non-Formulary Item 1 EACH (Olmesartan Medoxomil [Olmesartan Medoxomil] 20 MG Tablet) PO SCH (09:00)
[2023-02-21] MEDS ORDERED: RUXOLITINIB PHOSPHATE 15 MG PO SCH (09:00)
[2023-02-21] MEDS ORDERED: Non-Formulary Item 1 EACH (Cyanocobalamin (Vitamin B-12) [Vitamin B12] 2,500 MCG Tablet) PO SCH (09:00)
[2023-02-21 10:16] LABS: Hematocrit 22.3 % (42.0-52.0); Hemoglobin 6.8 g/dL (14.0-18.0); Mean Corpuscular HGB CONC 30.5 g/dL (32.0-36.0); Mean Corpuscular Hemoglobin 30.5 pg (27.0-31.0); Mean Platelet Volume 9.8 fL (7.4-10.4); Platelet Count 162 10x3/uL (130-400); RBC Distribution Width 17.4 % (11.5-14.5); Red Blood Cell (RBC) Count 2.23 mill/uL (4.70-6.10); White Blood Cell (WBC) Count 72.5 10x3/uL (4.8-10.8)
[2023-02-21] MEDS: Dextrose 5%-Lactated Ringers 1,000 ML IV SCH (10:22)
[2023-02-21 10:25] LABS: Lactic Acid 1.8 mmol/L (0.5-2.2)
[2023-02-21] MEDS: Octreotide Acetate 1,250 MCG in Sodium Chloride 0.9% 250 ML 250 ML IVPB SCH (11:58)
[2023-02-21] MEDS: Morphine 2 MG/ML VIAL SLOW IVP PRN ×3 (14:03→21:57)
[2023-02-21 17:06] LABS: Hematocrit 25.5 % (42.0-52.0); Hemoglobin 7.9 g/dL (14.0-18.0); Mean Corpuscular Hemoglobin 29.6 pg (27.0-31.0); Mean Platelet Volume 9.7 fL (7.4-10.4); Platelet Count 154 10x3/uL (130-400); RBC Distribution Width 17.4 % (11.5-14.5); Red Blood Cell (RBC) Count 2.67 mill/uL (4.70-6.10); White Blood Cell (WBC) Count 66.9 10x3/uL (4.8-10.8)
[2023-02-21 17:23] LABS: Mean Corpuscular Volume 95.5 fl (78.0-98.0)
[2023-02-21] MEDS ORDERED: fentaNYL 50 mcg/mL 1 mL Vial SLOW IVP PRN (20:30)
[2023-02-21] MEDS: hydrALAZINE 20 MG/ML VIAL SLOW IVP PRN (20:35)
[2023-02-21] MEDS ORDERED: Doxazosin 2 MG TAB PO SCH (21:00)
[2023-02-21] MEDS ORDERED: HYDROcodone/Acetaminophen 10/325 mg Tablet PO SCH (23:00)
[2023-02-22] MEDS: Dextrose 5%-Lactated Ringers 1,000 ML IV SCH (00:40)
[2023-02-22] MEDS ORDERED: HYDROcodone/Acetaminophen 10/325 mg Tablet PO SCH (00:45)
[2023-02-22] MEDS: Octreotide Acetate 1,250 MCG in Sodium Chloride 0.9% 250 ML 250 ML IVPB SCH ×2 (05:04→21:22)
[2023-02-22 08:18] LABS: Hematocrit 22.7 % (42.0-52.0); Hemoglobin 7.4 g/dL (14.0-18.0); Manual Diff?? YES; Mean Corpuscular HGB CONC 32.6 g/dL (32.0-36.0); Mean Corpuscular Hemoglobin 29.8 pg (27.0-31.0); Mean Platelet Volume 9.5 fL (7.4-10.4); Platelet Count 129 10x3/uL (130-400); Red Blood Cell (RBC) Count 2.48 mill/uL (4.70-6.10); White Blood Cell (WBC) Count 71.6 10x3/uL (4.8-10.8)
[2023-02-22 08:21] LABS: Mean Corpuscular Volume 91.5 fl (78.0-98.0)
[2023-02-22 08:22] LABS: Delete Auto Diff?? YES
[2023-02-22] MEDS: Pantoprazole 40 MG VIAL IVP SCH ×2 (08:36→21:10)
[2023-02-22] MEDS ORDERED: HYDROcodone/Acetaminophen 5/325 mg Tablet PO PRN (08:43)
[2023-02-22 08:45] LABS: ALT (SGPT) 19 U/L (8-55); AST (SGOT) 25 U/L (5-34); Albumin 2.4 g/dL (3.4-4.8); Alkaline Phosphatase 261 U/L (40-110); Anion Gap 12 mmol/L (10-20); Anisocytosis SLIGHT = 6-15 cells HPF (0-5); BUN (Urea Nitrogen) 43 mg/dL (8.4-25.7); Band 11 % (5-11); Bilirubin, Total 0.7 mg/dL (0.2-1.2); Calc. Creatinine Clearance 59 mL/min (70-130); Calcium 8.1 mg/dL (7.8-10.44); Carbon Dioxide 19 mmol/L (23-31); CellaVision Operator ID lab.dlt; Chloride 113 mmol/L (98-107); Estimated GFR 57; Globulin 1.6 g/dL (2.4-3.5); Glucose 147 mg/dL (83-110); Hypochromia SLIGHT = 6-15 cells HPF (0-5); Lymphocytes 3 % (21-51); Monocytes 6 % (0-10); Neutrophil 80 % (42-75); Nucleated RBC (Manual Ct) 2 % (0); Platelet Adequacy Comment Platelets Normal; Poikilocytosis SLIGHT = 6-15 cells HPF (0-5); Polychromasia SLIGHT = 2-3 cells HPF (0-2); Potassium 4.4 mmol/L (3.5-5.1); Schistocytes SLIGHT = 2-5 cells HPF (0-1); Sodium 140 mmol/L (136-145); Total Cell Count 117
[2023-02-22] MEDS: Memantine 10 MG TAB PO SCH ×2 (09:49→21:10)
[2023-02-22] MEDS: Propranolol HCl 20 MG TAB PO SCH ×2 (09:49→21:09)
[2023-02-22 18:17] LABS: Hematocrit 26.8 % (42.0-52.0); Hemoglobin 8.8 g/dL (14.0-18.0); Platelet Count 93 10x3/uL (130-400)
[2023-02-22] MEDS: Losartan 25 MG TAB PO SCH (21:09)
[2023-02-23] MEDS: hydrALAZINE 20 MG/ML VIAL SLOW IVP PRN (04:44)
[2023-02-23 09:21] LABS: Hematocrit 28.4 % (42.0-52.0); Hemoglobin 9.1 g/dL (14.0-18.0); Manual Diff?? YES; Mean Corpuscular Volume 93.7 fl (78.0-98.0); Mean Platelet Volume 9.8 fL (7.4-10.4); Platelet Count 90 10x3/uL (130-400); RBC Distribution Width 17.4 % (11.5-14.5); Red Blood Cell (RBC) Count 3.03 mill/uL (4.70-6.10)
[2023-02-23 09:42] LABS: Anion Gap 11 mmol/L (10-20); BUN (Urea Nitrogen) 34 mg/dL (8.4-25.7); Calc. Creatinine Clearance 61 mL/min (70-130); Calcium 8.1 mg/dL (7.8-10.44); Carbon Dioxide 20 mmol/L (23-31); Chloride 112 mmol/L (98-107); Delete Auto Diff?? YES; Estimated GFR 60; Glucose 205 mg/dL (83-110); Potassium 3.8 mmol/L (3.5-5.1); Sodium 139 mmol/L (136-145)
[2023-02-23] MEDS: Pantoprazole 40 MG VIAL IVP SCH (09:50)
[2023-02-23] MEDS: Propranolol HCl 20 MG TAB PO SCH (09:50)
[2023-02-23] MEDS: Memantine 10 MG TAB PO SCH (09:50)
[2023-02-23] MEDS: Losartan 25 MG TAB PO SCH (09:51)
[2023-02-23] MEDS ORDERED: Polyethylene Glycol 3350 17 GM Packet PO SCH (10:45)
[2023-02-23 10:57] LABS: Band 14 % (5-11); CellaVision Operator ID LAB.KW3; Lymphocytes 1 % (21-51); Metamyelocyte 2 % (0-0); Monocytes 1 % (0-10); Myelocyte 1 % (0-0); Neutrophil 80 % (42-75); Nucleated RBC (Manual Ct) 4 % (0); Platelet Adequacy Comment Platelets Decreased; Polychromasia MODERATE = 3-4 cells HPF (0-2); Reactive Lymphocytes 1 % (0-10); Total Cell Count 101
[2023-02-23] MEDS: Octreotide Acetate 1,250 MCG in Sodium Chloride 0.9% 250 ML 250 ML IVPB SCH (14:08)
[2023-02-23 15:37] VITALS: BP 153/74; TEMP 98.2
[2023-02-24] MEDS ORDERED: Polyethylene Glycol 3350 17 GM Packet PO SCH (09:00)
== END 2023-02-23 17:27 | disposition short-term general hospital (02) | DRG 435 ==
LOC: ERS 10:04 → ERHOLD 14:51 → MSONC 19:18 → 2NO 22:29
PROVIDERS: ADMIT Student in an Organized Health Care Education/Training Program; ATTEND Student in an Organized Health Care Education/Training Program
PROC: 30233N1 Transfusion of Nonautologous Red Blood Cells into Peripheral Vein, Percutaneous Approach (ICD-10-PCS; principal; 2023-02-20)
DX: C25.9 Malignant neoplasm of pancreas, unspecified (principal); U07.1 COVID-19; C78.6 Secondary malignant neoplasm of retroperitoneum and peritoneum; C78.7 Secondary malignant neoplasm of liver and intrahepatic bile duct; D75.81 Myelofibrosis; I10 Essential (primary) hypertension; E78.5 Hyperlipidemia, unspecified; N40.0 Benign prostatic hyperplasia without lower urinary tract symptoms; F17.220 Nicotine dependence, chewing tobacco, uncomplicated; K59.00 Constipation, unspecified; F10.90 Alcohol use, unspecified, uncomplicated; D50.0 Iron deficiency anemia secondary to blood loss (chronic); I48.0 Paroxysmal atrial fibrillation; F03.90 Unspecified dementia, unspecified severity, without behavioral disturbance, psychotic disturbance, mood disturbance, and anxiety; I86.4 Gastric varices; D46.9 Myelodysplastic syndrome, unspecified; Z92.21 Personal history of antineoplastic chemotherapy; Z98.41 Cataract extraction status, right eye; Z98.42 Cataract extraction status, left eye; Z90.49 Acquired absence of other specified parts of digestive tract; Z98.890 Other specified postprocedural states; Z83.3 Family history of diabetes mellitus; Z95.1 Presence of aortocoronary bypass graft
CPT/HCPCS: 36415; 36430; 74177; 80048; 80053; 83605; 83690; 85025; 85610; 85730; 86850; 86900; 86901; 93005; 94760; 96374; 96375; C9113; J0360; J1170; J1200; J1642; J2272; J2354; J2405; J2920; J3010; J7050; J7120; P9016; Q9967; S0028; U0002

== ENCOUNTER 2023-02-28 10:10 | Emergency (ER) | payer MEDICARE, OTHER ==
[2023-02-28 11:24] LABS: ALT (SGPT) 32 U/L (8-55); AST (SGOT) 24 U/L (5-34); Alkaline Phosphatase 139 U/L (40-110); Anion Gap 15 mmol/L (10-20); BUN (Urea Nitrogen) 58 mg/dL (8.4-25.7); Bilirubin, Total 0.3 mg/dL (0.2-1.2); Calc. Creatinine Clearance 0 mL/min (70-130); Carbon Dioxide 19 mmol/L (23-31); Chloride 111 mmol/L (98-107); Estimated GFR 60; Globulin 1.4 g/dL (2.4-3.5); Glucose 103 mg/dL (83-110); Lipase 20 U/L (8-78); Magnesium 1.8 mg/dL (1.6-2.6); Potassium 3.7 mmol/L (3.5-5.1); Protein, Total 3.4 g/dL (5.8-8.1); Sodium 141 mmol/L (136-145)
[2023-02-28 11:27] LABS: #Basophils 0.1 thou/uL (0.0-0.2); #Eosinphils 0.3 thou/uL (0.0-0.7); #Monocytes 1.6 thou/uL (0.11-0.59); #Neutrophils 20.8 thou/uL (1.40-6.50); %Basophils 0.3 % (0.0-1.0); %Eosinophils 1.4 % (0.0-10.0); %Lymphocytes 2.8 % (21.0-51.0); %Monocytes 6.5 % (0.0-10.0); %Neutrophils 84.6 % (42.0-75.0); Calcium 6.7 mg/dL (7.8-10.44); Critical Call Chemistry NUR.DF @1126; Hematocrit 19.1 % (42.0-52.0); Hemoglobin 5.8 g/dL (14.0-18.0); Mean Corpuscular HGB CONC 30.4 g/dL (32.0-36.0); Mean Corpuscular Hemoglobin 28.3 pg (27.0-31.0); Mean Corpuscular Volume 93.2 fl (78.0-98.0); Mean Platelet Volume 11.1 fL (7.4-10.4); Platelet Count 202 10x3/uL (130-400); RBC Distribution Width 17.7 % (11.5-14.5); Red Blood Cell (RBC) Count 2.05 mill/uL (4.70-6.10); Troponin I 0.038 ng/mL (< 0.028); White Blood Cell (WBC) Count 24.6 10x3/uL (4.8-10.8)
[2023-02-28 11:28] LABS: Critical Call w/ Read Back NUR.NMP@1130; Manual Diff?? YES
[2023-02-28] MEDS ORDERED: Famotidine/PF 20 mg/2ml Vial ONE (12:26)
[2023-02-28] MEDS ORDERED: methylPREDNISolone Sod Succ 40 MG VIAL ONE (12:26)
[2023-02-28] MEDS ORDERED: diphenhydrAMINE 50 MG/ML VIAL ONE (12:26)
[2023-02-28 12:40] LABS: Band 14 % (5-11); CellaVision Operator ID LAB.KB; Eosinophils 2 % (0-10); Hypochromia SLIGHT = 6-15 cells HPF (0-5); Lymphocytes 3 % (21-51); Monocytes 4 % (0-10); Neutrophil 76 % (42-75); Nucleated RBC (Manual Ct) 3 % (0); Ovalocytes SLIGHT = 2-5 cells HPF (0-1); Platelet Adequacy Comment Platelets Normal; Polychromasia SLIGHT = 2-3 cells HPF (0-2); Smudge Cells 29.8 %; Total Cell Count 104
[2023-02-28] MEDS ORDERED: Iopamidol-370 76% 500 ML MDV (1 ML CHARGE) ONE (12:57)
[2023-02-28] MEDS ORDERED: Pantoprazole 40 MG VIAL ONE (19:58)
[2023-02-28] MEDS ORDERED: cefTRIAXone (ROCEPHIN) 1 GM VIAL ONE (19:59)
[2023-02-28] MEDS ORDERED: Sodium Chloride 0.9% 100 ML ONE (19:59)
== END 2023-02-28 21:39 | disposition short-term general hospital (02) ==
LOC: ERS 10:10
DX: K92.2 Gastrointestinal hemorrhage, unspecified (principal); K55.019 Acute (reversible) ischemia of small intestine, extent unspecified; C25.4 Malignant neoplasm of endocrine pancreas; I10 Essential (primary) hypertension; F17.220 Nicotine dependence, chewing tobacco, uncomplicated; Z79.899 Other long term (current) drug therapy
CPT/HCPCS: 36430; 71045; 74177; 80053; 83690; 83735; 84484; 85025; 86850; 86900; 86901; 86920; 93005; 96374; 96375; 99285; P9016; C9113; J0696; J1200; J2920; J3490; Q9967; S0028

== ENCOUNTER 2023-03-22 22:54 | Emergency (ER) | payer MEDICARE, OTHER | END 2023-03-22 23:11 | disposition left against medical advice (07) | LOC: ERS 22:54 | DX: Z53.21 Procedure and treatment not carried out due to patient leaving prior to being seen by health care provider (principal) | CPT/HCPCS: 93005 ==

== ENCOUNTER 2023-07-27 09:02 | Outpatient (CLI) | payer MEDICARE, OTHER | END 2023-07-27 09:03 | disposition home or self-care (01) | LOC: CT 09:02 | PROVIDERS: ATTEND Internal Medicine Hematology & Oncology | DX: C25.1 Malignant neoplasm of body of pancreas (principal); C78.7 Secondary malignant neoplasm of liver and intrahepatic bile duct; J90 Pleural effusion, not elsewhere classified; J98.11 Atelectasis; R16.0 Hepatomegaly, not elsewhere classified | CPT/HCPCS: 71260; 74177 ==

== ENCOUNTER 2023-07-31 13:36 | Emergency (ER) | payer MEDICARE, OTHER ==
[2023-07-31] MEDS ORDERED: Octreotide Acetate 500 MCG/ML VIAL ONE (14:00)
[2023-07-31] MEDS ORDERED: cefTRIAXone (ROCEPHIN) 1 GM VIAL ONE (14:00)
[2023-07-31] MEDS ORDERED: Pantoprazole 40 MG VIAL ONE (14:00)
[2023-07-31] MEDS ORDERED: Sodium Chloride 0.9% 100 ML ONE (14:00)
[2023-07-31 14:18] LABS: #Basophils 0.03 10x3/uL (0.0-0.2); %Basophils 0.3 % (0.0-1.0); %Eosinophils 0.8 % (0.0-10.0); %Monocytes 13.8 % (0.0-10.0); Hematocrit 24.2 % (42.0-52.0); Hemoglobin 7.3 g/dL (14.0-18.0); Mean Corpuscular HGB CONC 30.2 g/dL (32.0-36.0); Mean Corpuscular Hemoglobin 29.4 pg (27.0-31.0); Mean Corpuscular Volume 97.6 fL (78.0-98.0); Mean Platelet Volume 9.6 fL (7.4-10.4); Platelet Count 260 10x3/uL (130-400); Red Blood Cell (RBC) Count 2.48 mill/uL (4.70-6.10)
[2023-07-31 14:33] LABS: INR-International Normal Ratio 1.1; PTT 24.5 sec (22.9-36.1); Prothrombin Time 14.6 sec (12.0-14.7)
[2023-07-31 14:39] LABS: ALT (SGPT) 23 U/L (8-55); AST (SGOT) 19 U/L (5-34); Albumin 2.5 g/dL (3.4-4.8); Alkaline Phosphatase 97 U/L (40-110); Anion Gap 13 mmol/L (10-20); BUN (Urea Nitrogen) 31 mg/dL (8.4-25.7); Bilirubin, Total 0.3 mg/dL (0.2-1.2); Calc. Creatinine Clearance 0 mL/min (70-130); Carbon Dioxide 17 mmol/L (23-31); Chloride 114 mmol/L (98-107); Estimated GFR 71; Globulin 1.9 g/dL (2.4-3.5); Glucose 186 mg/dL (83-110); Potassium 3.7 mmol/L (3.5-5.1); Protein, Total 4.4 g/dL (5.8-8.1); Sodium 140 mmol/L (136-145)
[2023-07-31] MEDS ORDERED: Octreotide Acetate 1,250 MCG in Sodium Chloride 0.9% 250 ML 250 ML IVPB SCH (14:45)
[2023-07-31 14:53] LABS: Troponin I 0.037 ng/mL (< 0.028)
[2023-07-31] MEDS ORDERED: HYDROcodone/Acetaminophen 5/325 mg Tablet ONE (18:42)
== END 2023-07-31 22:43 | disposition short-term general hospital (02) ==
LOC: ERS 13:36
DX: K92.2 Gastrointestinal hemorrhage, unspecified (principal); D50.0 Iron deficiency anemia secondary to blood loss (chronic); C25.4 Malignant neoplasm of endocrine pancreas; I12.9 Hypertensive chronic kidney disease with stage 1 through stage 4 chronic kidney disease, or unspecified chronic kidney disease; N18.9 Chronic kidney disease, unspecified; F17.210 Nicotine dependence, cigarettes, uncomplicated
CPT/HCPCS: 36430; 80053; 83605; 84484; 85025; 85610; 85730; 86850; 86900; 86901; 86920; 87040; 87077; 87149 ×2; 93005; 96365; 96366; 96367; 96375; 96376; 99285; C9113; J0696; J2354; J3490; J7050; P9016; 36415; 36416; 87186

== ENCOUNTER 2023-08-16 10:47 | Inpatient (IN) | payer MEDICARE, OTHER ==
[2023-08-16] MEDS ORDERED: diphenhydrAMINE 50 MG/ML VIAL ONE (12:42)
[2023-08-16] MEDS ORDERED: Famotidine/PF 20 mg/2ml Vial ONE (12:43)
[2023-08-16] MEDS ORDERED: methylPREDNISolone Sod Succ 40 MG VIAL ONE (12:43)
[2023-08-16 13:30] LABS: #Basophils 0.08 10x3/uL (0.0-0.2); %Eosinophils 2.1 % (0.0-10.0); %Lymphocytes 15.5 % (21.0-51.0); %Monocytes 11.8 % (0.0-10.0); %Neutrophils 67.5 % (42.0-75.0); Hematocrit 33.2 % (42.0-52.0); Hemoglobin 10.2 g/dL (14.0-18.0); Mean Corpuscular HGB CONC 30.7 g/dL (32.0-36.0); Mean Corpuscular Hemoglobin 29.8 pg (27.0-31.0); Mean Corpuscular Volume 97.1 fL (78.0-98.0); Mean Platelet Volume 8.8 fL (7.4-10.4); Platelet Count 392 10x3/uL (130-400); RBC Distribution Width 18.6 % (11.5-14.5); Red Blood Cell (RBC) Count 3.42 mill/uL (4.70-6.10)
[2023-08-16 13:51] LABS: INR-International Normal Ratio 0.9; PTT 27.4 sec (22.9-36.1); Prothrombin Time 12.3 sec (12.0-14.7)
[2023-08-16 14:09] LABS: ALT (SGPT) 31 U/L (8-55); AST (SGOT) 35 U/L (5-34); Albumin 3.3 g/dL (3.4-4.8); Alkaline Phosphatase 123 U/L (40-110); Anion Gap 13 mmol/L (10-20); BUN (Urea Nitrogen) 27 mg/dL (8.4-25.7); Bilirubin, Total 0.4 mg/dL (0.2-1.2); Calc. Creatinine Clearance 0 mL/min (70-130); Calcium 9.9 mg/dL (7.8-10.44); Carbon Dioxide 22 mmol/L (23-31); Chloride 110 mmol/L (98-107); Estimated GFR 66; Globulin 3.3 g/dL (2.4-3.5); Glucose 97 mg/dL (83-110); Potassium 4.8 mmol/L (3.5-5.1); Protein, Total 6.6 g/dL (5.8-8.1); Sodium 140 mmol/L (136-145)
[2023-08-16 14:13] LABS: Troponin I 0.029 ng/mL (< 0.028)
[2023-08-16 17:41] VITALS: BMI 27.8
[2023-08-16] MEDS ORDERED: Ondansetron ODT 4 MG TAB SL PRN (18:23)
[2023-08-16] MEDS ORDERED: Prochlorperazine Maleate 5 MG TAB PO PRN (18:24)
[2023-08-16 18:50] LABS: Hematocrit 33.8 % (42.0-52.0); Hemoglobin 10.4 g/dL (14.0-18.0); Platelet Count 388 10x3/uL (130-400)
[2023-08-16] MEDS: Heparin 10,000 UNITS/ 10 ML VIAL SLOW IVP SCH (21:12)
[2023-08-16] MEDS: Heparin 25,000 units/D5W 500 ML IVPB SCH (21:17)
[2023-08-16] MEDS: Pantoprazole 40 MG VIAL IVP SCH (21:20)
[2023-08-16] MEDS ORDERED: CEFAZOLIN 2 GM in Sodium Chloride 0.9% 100 ML IVPB SCH (23:45)
[2023-08-17 00:05] LABS: PTT 229.3 sec (22.9-36.1)
[2023-08-17 04:25] LABS: #Basophils 0.05 10x3/uL (0.0-0.2); #Eosinphils Less than 0.03 10x3/uL (0.0-0.7); %Basophils 0.4 % (0.0-1.0); %Lymphocytes 4.6 % (21.0-51.0); %Monocytes 6.3 % (0.0-10.0); %Neutrophils 87.4 % (42.0-75.0); Hemoglobin 9.8 g/dL (14.0-18.0); Mean Corpuscular HGB CONC 31.6 g/dL (32.0-36.0); Mean Corpuscular Hemoglobin 29.9 pg (27.0-31.0); Mean Corpuscular Volume 94.5 fL (78.0-98.0); Platelet Count 383 10x3/uL (130-400); RBC Distribution Width 18.1 % (11.5-14.5); Red Blood Cell (RBC) Count 3.28 mill/uL (4.70-6.10)
[2023-08-17 04:53] LABS: ALT (SGPT) 26 U/L (8-55); AST (SGOT) 26 U/L (5-34); Albumin 2.9 g/dL (3.4-4.8); Alkaline Phosphatase 118 U/L (40-110); Anion Gap 12 mmol/L (10-20); BUN (Urea Nitrogen) 25 mg/dL (8.4-25.7); Bilirubin, Total 0.3 mg/dL (0.2-1.2); Calc. Creatinine Clearance 67 mL/min (70-130); Calcium 9.5 mg/dL (7.8-10.44); Carbon Dioxide 22 mmol/L (23-31); Chloride 112 mmol/L (98-107); Estimated GFR 70; Globulin 3.1 g/dL (2.4-3.5); Glucose 99 mg/dL (83-110); Potassium 4.2 mmol/L (3.5-5.1); Sodium 142 mmol/L (136-145)
[2023-08-17] MEDS ORDERED: Hydrocortisone Sod Succ/PF 100 mg/2 ml Vial ONE (08:10)
[2023-08-17] MEDS ORDERED: diphenhydrAMINE 50 MG/ML VIAL ONE (08:10)
[2023-08-17] MEDS ORDERED: methylPREDNISolone Sod Succ 40 MG VIAL IVP ONE (08:18)
[2023-08-17] MEDS: Cyanocobalamin (Vitamin B-12) 1,000 MCG TAB PO SCH (08:29)
[2023-08-17] MEDS: Bupropion 150 MG SR.TAB PO SCH (08:29)
[2023-08-17] MEDS ORDERED: fentaNYL 50 mcg/mL 1 mL Vial ONE (08:37)
[2023-08-17] MEDS ORDERED: hydrALAZINE 20 MG/ML VIAL ONE (08:50)
[2023-08-17] MEDS: diphenhydrAMINE 50 MG/ML VIAL IVP SCH (10:43)
[2023-08-17] MEDS: methylPREDNISolone Sod Succ/PF 125 MG/2 ML VIAL IVP SCH (10:43)
[2023-08-17] MEDS: NIFEdipine XL 30 MG ER.TAB PO SCH (12:58)
[2023-08-17] MEDS: HYDROcodone/Acetaminophen 5/325 mg Tablet PO PRN (13:00)
[2023-08-17 13:01] VITALS: BP 164/92
[2023-08-17 17:27] VITALS: TEMP 98.2
[2023-08-18] MEDS ORDERED: NIFEdipine XL 30 MG ER.TAB PO SCH (09:00)
== END 2023-08-17 17:59 | disposition home or self-care (01) | DRG 299 ==
LOC: ERS 10:47 → 2NO 16:51 → IMCU/EMU 20:38
PROVIDERS: ADMIT Family Medicine; ATTEND Family Medicine
PROC: 06H03DZ Insertion of Intraluminal Device into Inferior Vena Cava, Percutaneous Approach (ICD-10-PCS; principal; 2023-08-17)
DX: I82.412 Acute embolism and thrombosis of left femoral vein (principal); I26.93 Single subsegmental thrombotic pulmonary embolism without acute cor pulmonale; I26.99 Other pulmonary embolism without acute cor pulmonale; J90 Pleural effusion, not elsewhere classified; C25.9 Malignant neoplasm of pancreas, unspecified; I86.4 Gastric varices; I27.20 Pulmonary hypertension, unspecified; I48.0 Paroxysmal atrial fibrillation; I25.10 Atherosclerotic heart disease of native coronary artery without angina pectoris; I10 Essential (primary) hypertension; D50.9 Iron deficiency anemia, unspecified; K57.90 Diverticulosis of intestine, part unspecified, without perforation or abscess without bleeding; F17.290 Nicotine dependence, other tobacco product, uncomplicated; Z95.1 Presence of aortocoronary bypass graft
CPT/HCPCS: 36415; 36416; 37191; 71045; 71275; 80053; 84484; 85025; 85610; 85730; 93005; 96374; 96375; C1769; C1880; C1894; C9113; J0360; J1200; J1642; J1644; J1720; J2920; J3010; S0028

== ENCOUNTER 2023-11-07 13:35 | Day surgery (SDC) | payer MEDICARE, OTHER ==
[2023-11-07] MEDS ORDERED: Acetaminophen 500 MG TAB ONE (14:04)
[2023-11-07] MEDS ORDERED: diphenhydrAMINE 25 MG CAP ONE (14:04)
[2023-11-07] MEDS: Acetaminophen 500 MG TAB PO SCH (14:14)
[2023-11-07] MEDS: diphenhydrAMINE 25 MG CAP PO SCH (14:37)
[2023-11-07 16:56] VITALS: BP 192/81; TEMP 98.1
== END 2023-11-07 16:56 | disposition home or self-care (01) ==
LOC: ONC/OP 13:35
PROVIDERS: ATTEND Internal Medicine Hematology & Oncology
DX: D64.9 Anemia, unspecified (principal); D69.6 Thrombocytopenia, unspecified; Z91.041 Radiographic dye allergy status; R97.8 Other abnormal tumor markers; C25.1 Malignant neoplasm of body of pancreas; C78.7 Secondary malignant neoplasm of liver and intrahepatic bile duct; N18.31 Chronic kidney disease, stage 3a; D63.1 Anemia in chronic kidney disease; D50.8 Other iron deficiency anemias
CPT/HCPCS: 36430; 80053; 86301; 86850; 86900; 86901; 86920; P9016

== ENCOUNTER 2023-11-09 12:59 | Day surgery (SDC) | payer MEDICARE, OTHER ==
[2023-11-09] MEDS ORDERED: diphenhydrAMINE 25 MG CAP PO SCH (13:15)
[2023-11-09] MEDS ORDERED: Acetaminophen 500 MG TAB ONE (13:19)
[2023-11-09] MEDS: Acetaminophen 500 MG TAB PO SCH (13:20)
[2023-11-09 18:05] VITALS: BP 170/78; TEMP 97.6
== END 2023-11-09 18:12 | disposition home or self-care (01) ==
LOC: ONC/OP 12:59
PROVIDERS: ATTEND Internal Medicine Hematology & Oncology
DX: D64.9 Anemia, unspecified (principal); D69.6 Thrombocytopenia, unspecified; Z91.041 Radiographic dye allergy status
CPT/HCPCS: 36430; 86850; 86900; 86901; 86920; J1642; P9016

== ENCOUNTER 2023-11-15 09:57 | Emergency (ER) | payer MEDICARE, OTHER ==
[2023-11-15] MEDS ORDERED: Pantoprazole 40 MG VIAL ONE (11:05)
[2023-11-15 11:45] LABS: #Basophils 0.04 10x3/uL (0.0-0.2); %Basophils 0.3 % (0.0-1.0); %Eosinophils 0.5 % (0.0-10.0); %Lymphocytes 1.2 % (21.0-51.0); %Monocytes 5.7 % (0.0-10.0); %Neutrophils 85.2 % (42.0-75.0); Hematocrit 26.4 % (42.0-52.0); Hemoglobin 8.4 g/dL (14.0-18.0); Mean Corpuscular HGB CONC 31.8 g/dL (32.0-36.0); Mean Corpuscular Hemoglobin 30.2 pg (27.0-31.0); Mean Platelet Volume 10.1 fL (7.4-10.4); Platelet Count 109 10x3/uL (130-400); RBC Distribution Width 17.5 % (11.5-14.5); Red Blood Cell (RBC) Count 2.78 mill/uL (4.70-6.10)
[2023-11-15 11:47] LABS: ALT (SGPT) 22 U/L (8-55); AST (SGOT) 21 U/L (5-34); Albumin 3.2 g/dL (3.4-4.8); Alkaline Phosphatase 195 U/L (40-110); Anion Gap 11 mmol/L (10-20); BUN (Urea Nitrogen) 41 mg/dL (8.4-25.7); Bilirubin, Total 0.8 mg/dL (0.2-1.2); Calc. Creatinine Clearance 0 mL/min (70-130); Calcium 8.8 mg/dL (7.8-10.44); Carbon Dioxide 22 mmol/L (23-31); Chloride 113 mmol/L (98-107); Estimated GFR 57; Glucose 105 mg/dL (83-110); Lipase 8 U/L (8-78); Potassium 4.7 mmol/L (3.5-5.1); Protein, Total 5.2 g/dL (5.8-8.1); Sodium 141 mmol/L (136-145)
[2023-11-15 11:48] LABS: INR-International Normal Ratio 1.2; PTT 29.6 sec (22.9-36.1); Prothrombin Time 14.7 sec (12.0-14.7)
[2023-11-15 11:50] LABS: Troponin I 0.041 ng/mL (< 0.028)
[2023-11-15 12:27] LABS: Band 20 % (5-11); Eosinophils 2 % (0-10); Hypochromia SLIGHT = 6-15 cells HPF (0-5); Large Platelets 0.9 % (0-5); Lymphocytes 2 % (21-51); Microcytosis SLIGHT = 6-15 cells HPF (0-5); Monocytes 4 % (0-10); Neutrophil 72 % (42-75); Platelet Adequacy Comment Platelets Decreased; Schistocytes SLIGHT = 2-5 cells HPF (0-1)
== END 2023-11-15 13:15 | disposition left against medical advice (07) ==
LOC: ERS 09:57
DX: K92.2 Gastrointestinal hemorrhage, unspecified (principal); D64.9 Anemia, unspecified; C25.4 Malignant neoplasm of endocrine pancreas; I10 Essential (primary) hypertension; F17.220 Nicotine dependence, chewing tobacco, uncomplicated
CPT/HCPCS: 80053; 83690; 84484; 85025; 85610; 85730; 86850; 86900; 86901; 93005; J2470; 36415; 82274; 99285

== ENCOUNTER 2023-11-16 14:47 | Emergency (ER) | payer MEDICARE, OTHER ==
[2023-11-16 16:01] LABS: Hematocrit 23.8 % (42.0-52.0); Hemoglobin 7.7 g/dL (14.0-18.0); Mean Corpuscular HGB CONC 32.4 g/dL (32.0-36.0); Mean Corpuscular Hemoglobin 30.4 pg (27.0-31.0); Mean Corpuscular Volume 94.1 fL (78.0-98.0); Mean Platelet Volume 10.9 fL (7.4-10.4); Platelet Count 95 10x3/uL (130-400); RBC Distribution Width 17.2 % (11.5-14.5); Red Blood Cell (RBC) Count 2.53 mill/uL (4.70-6.10)
[2023-11-16 16:22] LABS: ALT (SGPT) 25 U/L (8-55); AST (SGOT) 20 U/L (5-34); Alkaline Phosphatase 170 U/L (40-110); Anion Gap 9 mmol/L (10-20); BUN (Urea Nitrogen) 37 mg/dL (8.4-25.7); Bilirubin, Total 0.6 mg/dL (0.2-1.2); Calc. Creatinine Clearance 0 mL/min (70-130); Calcium 8.9 mg/dL (7.8-10.44); Carbon Dioxide 23 mmol/L (23-31); Chloride 112 mmol/L (98-107); Estimated GFR 53; Globulin 1.9 g/dL (2.4-3.5); Glucose 114 mg/dL (83-110); Lipase 8 U/L (8-78); Magnesium 1.8 mg/dL (1.6-2.6); Potassium 4.4 mmol/L (3.5-5.1); Protein, Total 4.9 g/dL (5.8-8.1); Sodium 140 mmol/L (136-145)
[2023-11-16 16:26] LABS: Band 18 % (5-11); Burr Cells SLIGHT = 2-5 cells HPF (0-1); Eosinophils 1 % (0-10); Lymphocytes 2 % (21-51); Macrocytosis SLIGHT = 6-15 cells HPF (0-5); Monocytes 15 % (0-10); Neutrophil 65 % (42-75); Platelet Adequacy Comment Platelets Decreased; Polychromasia SLIGHT = 2-3 cells HPF (0-2); Tear Drops SLIGHT = 2-5 cells HPF (0-1)
[2023-11-16 16:28] LABS: Troponin I 0.055 ng/mL (< 0.028)
[2023-11-16 17:45] LABS: Bacteria/HPF None Seen HPF (None Seen); Bilirubin Negative (Negative); Blood, Urine Negative (Negative); CAUTI Indications for Culture Dysuria,urgency,freq; Clarity Clear (Clear); Glucose, Urine (Dipstick) Normal (Negative); Ketone, Urine Negative (Negative); Leukocyte Negative Leu/uL (Negative); Nitrite Negative (Negative); Protein, Urine (Dipstick) 20 mg/dL (Neg-Trace); RBC/HPF 0-3 HPF (0-3); Specific Gravity, Urine 1.044 (1.002-1.036); Squamous Epithelial 0-3 HPF (0-3); Urobilinogen Normal mg/dL (Less than 2)
[2023-11-16 17:50] LABS: Urine Culture Reflex No No
== END 2023-11-16 18:32 | disposition home or self-care (01) ==
LOC: ERS 14:47
DX: D64.9 Anemia, unspecified (principal); D69.59 Other secondary thrombocytopenia; R10.9 Unspecified abdominal pain; C25.9 Malignant neoplasm of pancreas, unspecified; I10 Essential (primary) hypertension; F17.220 Nicotine dependence, chewing tobacco, uncomplicated
CPT/HCPCS: 71275; 74174; 80053; 81001; 83605; 83690; 83735; 84484; 85025; 86850; 86900; 86901; 87040; 87086; 93005; J1642; 36416; 96374

== ENCOUNTER 2024-02-02 09:58 | Outpatient (CLI) | payer MEDICARE, OTHER ==
[2024-02-02] MEDS ORDERED: Iopamidol 370 76% 100 ML VIAL ONE (10:50)
== END 2024-02-02 09:59 | disposition home or self-care (01) ==
LOC: CT 09:58
PROVIDERS: ATTEND Internal Medicine Hematology & Oncology
DX: C25.1 Malignant neoplasm of body of pancreas (principal); C78.7 Secondary malignant neoplasm of liver and intrahepatic bile duct; N18.31 Chronic kidney disease, stage 3a; D63.1 Anemia in chronic kidney disease; D50.8 Other iron deficiency anemias; R97.8 Other abnormal tumor markers; R53.1 Weakness
CPT/HCPCS: 71260; 74177; Q9967

== ENCOUNTER 2024-02-20 11:42 | Day surgery (SDC) | payer MEDICARE, OTHER ==
[2024-02-20] MEDS ORDERED: diphenhydrAMINE 25 MG CAP PO SCH (12:00)
[2024-02-20] MEDS ORDERED: Acetaminophen 500 MG TAB ONE (12:40)
[2024-02-20] MEDS: Acetaminophen 500 MG TAB PO SCH (12:41)
[2024-02-20 16:56] VITALS: BP 155/70; TEMP 97.9
== END 2024-02-20 17:02 | disposition home or self-care (01) ==
LOC: ONC/OP 11:42
PROVIDERS: ATTEND Internal Medicine Hematology & Oncology
DX: D64.9 Anemia, unspecified (principal); D69.6 Thrombocytopenia, unspecified
CPT/HCPCS: 36430; 86850; 86900; 86901; 86920; J1642; P9016; 80053

== ENCOUNTER 2024-03-08 09:03 | Day surgery (SDC) | payer MEDICARE, OTHER ==
[2024-03-08] MEDS ORDERED: Acetaminophen 500 MG TAB ONE (09:40)
[2024-03-08] MEDS: Acetaminophen 500 MG TAB PO SCH (09:42)
[2024-03-08] MEDS: diphenhydrAMINE 25 MG CAP PO SCH (09:43)
[2024-03-08 14:36] VITALS: BP 113/57; TEMP 97.7
== END 2024-03-08 13:02 | disposition home or self-care (01) ==
LOC: ONC/OP 09:03
PROVIDERS: ATTEND Internal Medicine Hematology & Oncology
DX: D64.9 Anemia, unspecified (principal); D69.6 Thrombocytopenia, unspecified
CPT/HCPCS: 36430; 86850; 86900; 86901; 86920; J1642; P9016

== ENCOUNTER 2024-03-14 12:56 | Day surgery (SDC) | payer MEDICARE, OTHER ==
[2024-03-14] MEDS ORDERED: diphenhydrAMINE 25 MG CAP ONE (13:45)
[2024-03-14] MEDS ORDERED: Acetaminophen 500 MG TAB ONE (13:45)
[2024-03-14] MEDS: diphenhydrAMINE 25 MG CAP PO SCH (13:46)
[2024-03-14] MEDS: Acetaminophen 500 MG TAB PO SCH (13:46)
[2024-03-14 16:12] VITALS: BP 117/58; TEMP 97.8
== END 2024-03-14 16:16 | disposition home or self-care (01) ==
LOC: ONC/OP 12:56
PROVIDERS: ATTEND Internal Medicine Hematology & Oncology
DX: D64.9 Anemia, unspecified (principal); D69.6 Thrombocytopenia, unspecified; Z91.041 Radiographic dye allergy status
CPT/HCPCS: 36430; 86850; 86900; 86901; 86920; J1642; P9016

== ENCOUNTER 2024-03-22 09:28 | Day surgery (SDC) | payer MEDICARE, OTHER ==
[2024-03-22] MEDS ORDERED: Acetaminophen 500 MG TAB ONE (10:16)
[2024-03-22] MEDS: Acetaminophen 500 MG TAB PO SCH (10:18)
[2024-03-22] MEDS: diphenhydrAMINE 25 MG CAP PO SCH (10:18)
[2024-03-22 12:22] VITALS: TEMP 97.6
[2024-03-22 13:56] VITALS: BP 113/54
[2024-03-22 14:58] LABS: Hematocrit 24.4 % (42.0-52.0); Hemoglobin 7.4 g/dL (14.0-18.0); Mean Corpuscular HGB CONC 30.3 g/dL (32.0-36.0); Mean Corpuscular Hemoglobin 28.7 pg (27.0-31.0); Mean Corpuscular Volume 94.6 fL (78.0-98.0); Mean Platelet Volume 9.3 fL (7.4-10.4); Platelet Count 313 10x3/uL (130-400); RBC Distribution Width 19.6 % (11.5-14.5); Red Blood Cell (RBC) Count 2.58 mill/uL (4.70-6.10)
== END 2024-03-22 14:43 | disposition home or self-care (01) ==
LOC: ONC/OP 09:28
PROVIDERS: ATTEND Internal Medicine Hematology & Oncology
DX: D64.9 Anemia, unspecified (principal); D69.6 Thrombocytopenia, unspecified; Z91.041 Radiographic dye allergy status; C25.1 Malignant neoplasm of body of pancreas; C78.7 Secondary malignant neoplasm of liver and intrahepatic bile duct; D50.8 Other iron deficiency anemias; N18.31 Chronic kidney disease, stage 3a; D63.1 Anemia in chronic kidney disease; R97.8 Other abnormal tumor markers
CPT/HCPCS: 36430; 80053; 85027; 86850; 86900; 86901; 86920; J1642; P9016; 36415

== ENCOUNTER 2024-03-27 08:57 | Day surgery (SDC) | payer MEDICARE, OTHER ==
[2024-03-27] MEDS ORDERED: Acetaminophen 500 MG TAB ONE (09:34)
[2024-03-27] MEDS ORDERED: diphenhydrAMINE 25 MG CAP ONE (09:35)
[2024-03-27] MEDS: diphenhydrAMINE 25 MG CAP PO SCH (09:36)
[2024-03-27] MEDS: Acetaminophen 500 MG TAB PO SCH (09:36)
[2024-03-27 12:26] VITALS: BP 137/65; TEMP 97.9
[2024-03-27 13:20] LABS: Hemoglobin 7.4 g/dL (14.0-18.0); Mean Corpuscular HGB CONC 30.8 g/dL (32.0-36.0); Mean Corpuscular Hemoglobin 28.7 pg (27.0-31.0); Mean Platelet Volume 9.2 fL (7.4-10.4); Platelet Count 496 10x3/uL (130-400); RBC Distribution Width 18.9 % (11.5-14.5); Red Blood Cell (RBC) Count 2.58 mill/uL (4.70-6.10)
[2024-03-27 14:17] LABS: Anisocytosis SLIGHT = 6-15 cells HPF (0-5); Band 17 % (5-11); Burr Cells SLIGHT = 2-5 cells HPF (0-1); Hypochromia SLIGHT = 6-15 cells HPF (0-5); Lymphocytes 1 % (21-51); Monocytes 4 % (0-10); Neutrophil 77 % (42-75); Nucleated RBC (Manual Ct) 2 % (0); Platelet Adequacy Comment Platelets Increased; Polychromasia MODERATE = 3-4 cells HPF (0-2)
== END 2024-03-27 13:08 | disposition home or self-care (01) ==
LOC: ONC/OP 08:57
PROVIDERS: ATTEND Internal Medicine Hematology & Oncology
DX: D64.9 Anemia, unspecified (principal); D69.6 Thrombocytopenia, unspecified
CPT/HCPCS: 36430; 85025; 86850; 86900; 86901; 86920; P9016; 36415

== ENCOUNTER 2024-09-24 11:09 | Day surgery (SDC) | payer MEDICARE, OTHER ==
[2024-09-24] MEDS ORDERED: diphenhydrAMINE 25 MG CAP PO SCH (12:00)
[2024-09-24] MEDS ORDERED: diphenhydrAMINE 25 MG CAP ONE (12:36)
[2024-09-24] MEDS ORDERED: Acetaminophen 500 MG TAB ONE (12:36)
[2024-09-24] MEDS: Acetaminophen 500 MG TAB PO SCH (12:38)
[2024-09-24 15:23] VITALS: BP 140/66; TEMP 97.8
== END 2024-09-24 15:42 | disposition home or self-care (01) ==
LOC: ONC/OP 11:09
PROVIDERS: ATTEND Internal Medicine Hematology & Oncology
DX: D64.9 Anemia, unspecified (principal); D69.6 Thrombocytopenia, unspecified
CPT/HCPCS: 36430; 86850; 86900; 86901; 86920; J1642; P9016

== ENCOUNTER 2024-11-04 15:23 | Inpatient (IN) | payer OTHER ==
[2024-11-04] MEDS ORDERED: Bisacodyl 10 MG SUPP PR PRN (15:42)
[2024-11-04] MEDS ORDERED: Scopolamine 1 mg/72 hour Patch TOP PRN (15:45)
[2024-11-04] MEDS ORDERED: Ondansetron PF 4 MG/2 ML Vial IVP PRN (15:45)
[2024-11-04 21:27] VITALS: BP 71/50; TEMP 97.4
[2024-11-04] MEDS: Glycopyrrolate 0.4 MG/ 2 ML VIAL SLOW IVP PRN (21:49)
== END 2024-11-05 09:30 | disposition expired | DRG 951 ==
LOC: PCU 15:23
PROVIDERS: ADMIT Family Medicine; ATTEND Family Medicine
DX: Z51.5 Encounter for palliative care (principal); A41.9 Sepsis, unspecified organism; K65.9 Peritonitis, unspecified; C25.9 Malignant neoplasm of pancreas, unspecified; E11.9 Type 2 diabetes mellitus without complications; D64.9 Anemia, unspecified; I48.91 Unspecified atrial fibrillation; I25.10 Atherosclerotic heart disease of native coronary artery without angina pectoris; Z91.048 Other nonmedicinal substance allergy status; N19 Unspecified kidney failure; Z79.899 Other long term (current) drug therapy
CPT/HCPCS: J2060